=== PATIENT | female | born 1985 | race Caucasian/White ===

== ENCOUNTER 2017-12-14 15:23 | Outpatient (RCR) | payer OTHER, SELFPAY ==
--- NOTE | 2017-12-14 15:30 | PTTR_ITS ---
DATE: December 14, 2017 SUBJECTIVE: Nidia reports that overall she is noticing less knee pain. She has been trying to stay compliant with her HEP and has dug her old brace out and has been utilizing as needed between the right and left knee depending upon the day. She notes that she had guards over the weekend. She did a lot of running around and climbing this did increase her symptom level some. She notes that she gets some slight anterior knee pain with completion of the wall slides. She questions if she is completing them correctly. OBJECTIVE: Manual therapy: ([id number]).Patellofemoral joint mobilization all planes to bilateral knees. Soft tissue stretching to bilateral hamstring, ITB, piriformis , and quadriceps. Therapeutic procedures ([id number]). * X HEP review: Reviewed current program and added addition patellofemoral stabilization focusing open and closed chain tasks. Provided verbal and tactile cueing for proper body mechanics and avoidance of compensatory movement patterns. See additional handout in chart. Patient did not have a change of clothes at todays session due to just coming from work preferred the progression of HEP verses in clinic therex. Emphasized the importance of positioning during all exercise to avoid increased irritation primarily with functional squat in maintaining weight into heels and avoiding her knee from crossing her toes. Also recommended she not go to deep with the wall slide to reduce the stress anterior. This was much more comfortable for her. Declined need of modality post session. She will continue with HEP and contact dept if further appts are needed. If no formal contact is made over the next month will consider her discharged from our care at this time. Patient is also in agreement with this plan. Direct treatment time: 30 minutes Total treatment time: 30 minutes
== END 2017-12-23 23:59 | disposition home or self-care (01) ==
LOC: PT 15:23
PROVIDERS: PCP Nurse Practitioner; Referring Provider Nurse Practitioner Family; Visit Provider Nurse Practitioner Family
DX: M22.2X1 Patellofemoral disorders, right knee (principal); M22.2X2 Patellofemoral disorders, left knee
CPT/HCPCS: 97110; 97140

== ENCOUNTER 2018-02-20 11:29 | Emergency (ER) | payer OTHER, SELFPAY ==
[2018-02-20 11:47] VITALS: BP 124/65; PULSE 92; RESP 18; TEMP 36.6; O2SAT 100
--- NOTE | 2018-02-20 11:58 | W.ED.GENAD ---
Discharge Plan Disposition Patient Disposition: HOME Condition: Stable Discharge Details Chief Complaint: Orthopedic Clinical Impression: Axillary nerve palsy Primary Care Provider: Anne Marie Angelo ED Provider: Jazmín Doan Home Meds and New Rx's Prescriptions: Continue levonorgestrel-ethinyl estrad [Orsythia] 1 EACH tablet 1 tab-cap PO DAILY RF: 0 cyanocobalamin (vitamin B-12) [Vitamin B-12] 2,500 MCG tablet, sublingual 2,500 mcg PO DAILY RF: 0 pantoprazole 20 mg Tablet,Delayed Release (Dr/Ec) 20 mg PO DAILY RF: 0 Discharge Instructions Instructions: How to Use a Sling (GEN), Radial Nerve Palsy (ED) Additional Instructions: Please return immediately to the emergency department if you develop any new or worsening symptoms or if you become otherwise concerned. It is extremely important that you make an appointment to be seen by your primary care doctor within the next 1-2 weeks and follow-up for this visit. Today you were given discharge instructions for radial nerve palsy, however the actual nerve palsy that you have sustained is likely to the axillary nerve as we discussed. Referrals: Anne Marie Angelo [Primary Care Provider] - Discharge Data Discharge Date/Time-TO BE ENTERED AT DEPARTURE: 02/20/18 16:30 Medical Decision Making Nidia Bowman is a 33 y/o woman with h/o GERD who presented to the emergency departmnt with 2 days of left arm weakness, tingling after sleeping on the arm two nights ago. On exam Pt is well and non-toxic appearing. Cannot abduct left shoulder beyond 40-50 degrees. FROM left digits, wrist, elbow with normal strength. Sensory deficit over lateral upper arm. No other neuro deficit, no TTP of c/s, LUE. 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 Exam/hx not c/w CVA or other intracranial process, cervical spine etiology, infection, acute fracture. Plan for shoulder xrays for r/o possible contributory bony abnormality. Xray neg. Discussed Pt presentation with Dr. Coats of ortho, who agress with likely axillary neuropraxia, recommends sling usage for comfort, outpt f/u with PCP. Lengthy discussion with Pt re: RTED precautions and importance of outpt f/u with PCP. She is amenable to the plan. Medical Records Medical records reviewed: Yes I reviewed the patient's medical records. Imaging Data Radiologic Study: Attestation: I personally reviewed and interpreted this imaging study as follows: Radiologist's impression: LEFT SHOULDER: Five views. No priors. No bone or joint abnormality is identified. The soft tissues are unremarkable. IMPRESSION: Negative examination. HPI General Mode of arrival: ambulatory. Date/Time Provider Initiated Documentation: 02/20/18 11:58. Limitations to Documentation: no limitations. Information obtained by: patient and RN notes reviewed. HPI Narrative: Nidia Bwoman is a33 y/o woman with h/o GERD presenting to the emergency department with left arm weakness. Pt reports that two nights ago she fell asleep watching TV while lying on her left arm. When she woke up yesterday she felt tingling over the outer upper arm, superior shoulder area, and was unable to raise her arm to 90 degrees. No difficulty ranging fingers, wrist, elbow. Pt reports that her symptoms are unchanged today. Shes denies pain, other n/t/weakness, fever, SOB, cough, rash, n/v/d. Feels otherwise in her usual state of health. No recent illness. No trauma. Never with similar symptoms in the past. Related Data Home Medications Medication Instructions Recorded Confirmed levonorgestrel-ethinyl estrad 1 tab-cap PO DAILY tab-cap 07/20/16 02/20/18 [Orsythia] cyanocobalamin (vitamin B-12) 2,500 mcg PO DAILY 09/24/16 02/20/18 [Vitamin B-12] pantoprazole 20 mg PO DAILY 02/20/18 02/20/18 Allergies Allergy/AdvReac Type Severity Reaction Status Date / Time cefuroxime axetil Allergy Unknown red bumpy Unverified 02/20/18 14:05 [From Ceftin] nose vancomycin Allergy Unknown itchy Unverified 02/20/18 14:05 General Stated Complaint: Orthopedic DONNA: 4 Review of Systems Review of Systems Constitutional: denies fevers Eyes: denies eye pain ENT: denies facial pain, dental pain, sore throat Cardiovascular: denies chest pain, edema Respiratory: denies SOB, cough GI: denies abdominal pain, vomiting, diarrhea : denies flank pain MSK: denies back pain, neck pain, arthralgias, myalgias Skin: denies rash Neuro: denies headaches, reports LUE weakness, tingling PFSH Family History Mother No problems noted. Father No problems noted. Medical History Chronic pelvic pain in female Cyst of ovary Dysmenorrhea Endometriosis Hiatal hernia Irritable colon Recurrent dislocation of patellofemoral joint Tobacco dependence, continuous Social History Smoking/Tobacco Use Status: Current every day Surgical History Appendectomy (~2015) Arthroplasty of knee Colonoscopy - IV Sedation Diagnostic Laproscopy Endoscopy Incision, Tendon Sheath Exam Narrative Exam Narrative: Constitutional: well and [id number], pleasant, conversing normally HENT: head atraumatic, normocephalic normal inspection, mucous membranes moist Eyes: conjunctiva normal, sclera normal, pupils 3mm b/l Neck: no stridor, normal ROM, trachea midline, no paraspinal or cervical spine TTP Chest: normal inspection Resp: normal work of breathing, LCTAB Cardio: normal rate, normal rhythm, no murmur appreciated Back: normal inspection, no rash Skin: warm, dry, normal color, no rash Neuro: alert, not altered, normal tone. Normal flexion/extension of left digits, wrist, elbow. Inability to actively abduct left shoulder >40-50 degrees. Subjective sensory changes over left lateral upper arm. Radial pusles intact and and symmetric. Normal neuro exam of RUE. 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 Normal gait. LUE NTTP throughout. Painless ROM left shoulder, elbow, wrist. No overlying skin changes of LUE. Ext: no edema Psych: normal mood, normal affect, normal behavior Course Vital Signs Temperature 36.6 C 02/20/18 11:47 Pulse 92 H 02/20/18 11:47 Respiratory Rate 18 02/20/18 11:47 Blood Pressure 124/65 02/20/18 11:47 Pulse Oximetry 100 02/20/18 11:47 Temperature 36.6 C 02/20/18 11:47 Temperature Source Temporal Artery Scan 02/20/18 11:47 Pulse 92 H 02/20/18 11:47 Respiratory Rate 18 02/20/18 11:47 Blood Pressure 124/65 02/20/18 11:47 Blood Pressure Position Sitting 02/20/18 11:47 Pulse Oximetry 100 02/20/18 11:47 Oxygen Delivery Method Room Air 02/20/18 11:47 Oxygen Flow Rate 0 02/20/18 11:47 Pain Level 5 02/20/18 11:47
--- NOTE | 2018-02-20 12:28 | DI.RAD_ITS ---
SYMPTOMS/DIAGNOSIS: LT HUMERUS PAIN WITH NEUROPRAXIA LEFT SHOULDER: Five views. No priors. No bone or joint abnormality is identified. The soft tissues are unremarkable. IMPRESSION: Negative examination.
== END 2018-02-20 16:30 | disposition home or self-care (01) ==
PROVIDERS: Emergency Provider Student in an Organized Health Care Education/Training Program; PCP Nurse Practitioner
DX: G56.82 Other specified mononeuropathies of left upper limb (principal); R20.2 Paresthesia of skin
CPT/HCPCS: 99283; 73030; L1902

== ENCOUNTER 2018-03-27 16:40 | Outpatient (REF) | payer OTHER, SELFPAY ==
--- NOTE | 2018-03-27 15:20 | PAPFT_PTH ---
PATIENT: Nidia Bowman LOC: [facility] U#:[id number] AGE/SX: 33/F ROOM: RE03/27/[address]: Winifred Tom : 1985 BED: DIS: 03/27/2018 SPEC #: [id number] RECD: 03/27/18 17:58 STATUS: SHARON REUrban #: [id number] MARY KATE: 03/27/18 15:[address]: Winifred Tom DEPT: [facility] Cytology RECD BY: Kelsey Carrasco ENTERED: 03/27/18 17:58 SP TYPE: PAPFT OTHR DR: Anen Marie Angelo Tissues: 1 - CX/ENDOCX FOR PAP SMEARS Procedures: PAP THIN PREP/UVM Screening HPV DNA PROBE Comments: [id number]
[2018-03-29 13:15] LABS: Chlamydia Result Negative; GC Result Negative; Specimen Description CERVIX
== END 2018-03-27 17:00 ==
LOC: LBN 16:40
PROVIDERS: PCP Nurse Practitioner; Visit Provider Obstetrics & Gynecology Gynecology
DX: Z12.4 Encounter for screening for malignant neoplasm of cervix (principal); Z11.51 Encounter for screening for human papillomavirus (HPV); Z11.3 Encounter for screening for infections with a predominantly sexual mode of transmission; N89.8 Other specified noninflammatory disorders of vagina
CPT/HCPCS: 87491; 87591; 88142; 87480; 87510; 87624; 87660

== ENCOUNTER 2018-09-27 12:43 | Emergency (ER) | payer OTHER, SELFPAY ==
[2018-09-27 12:51] VITALS: BP 117/76; PULSE 109; RESP 16; TEMP 36.6; O2SAT 100
--- NOTE | 2018-09-27 12:57 | DI.US_ITS ---
SYMPTOMS/DIAGNOSIS: RIGHT LOWER PELVIC PAIN, ? OVARIAN CYST PELVIC ULTRASOUND: Transabdominal and transvaginal examination was performed. Comparison is 03/29/17. The uterus measures 7.8 cm long x 2.8 cm AP x 4 cm transverse. The endometrial stripe is within normal limits at 0.5 cm. No myometrial mass is present. The right ovary measures 3.0 x 1.8 x 1.8 cm. There are multiple simple cysts seen in the right ovary, the largest measures 1.7 x 0.9 x 1.6 cm. There is blood flow seen to both ovaries. No evidence of torsion is present. The left ovary measures 6.4 x 3.1 x 3.0 cm. There are multiple simple cysts present. The largest measures 2.8 x 1.8 x 2.6 cm. There is blood flow to the left ovary. No evidence of torsion is present. No free fluid is seen in the pelvis. No hydronephrosis is present. IMPRESSION: 1. Multicystic ovaries suspicious for polycystic ovarian disease. 2. No acute abnormality. The findings were discussed with the Emergency Department on the date of the examination.
--- NOTE | 2018-09-27 12:59 | W.ED.GENAD ---
Discharge Plan Disposition Patient Disposition: HOME Condition: Stable Discharge Details Chief Complaint: Abd Prob Clinical Impression: Cysts of both ovaries Primary Care Provider: Anne Marie Angelo ED Provider: Srinivas Singh Home Meds and New Rx's Prescriptions: New hydrocodone-acetaminophen [Vicodin] 5-300 mg tablet 1 tab PO Q6H PRN (Reason: pain) Qty: 12 RF: 0 Continued Lupron Depot (3 month) 11.25 mg syringe kit 11.25 mg IM [id number] Qty: 1 RF: 4 cyanocobalamin (vitamin B-12) [Vitamin B-12] 2,500 MCG tablet, sublingual 2,500 mcg PO DAILY RF: 0 pantoprazole 20 mg Tablet,Delayed Release (Dr/Ec) 20 mg PO DAILY RF: 0 ibuprofen 400 mg Tablet 400 mg RF: 0 norethindrone acetate 5 mg Tablet 5 mg PO DAILY AM RF: 0 Discharge Instructions Instructions: Ovarian Cyst (ED) Additional Instructions: follow up with women's wellness within a week if you have pain take 600mg ibuprofen every 6 hours as needed if you have severe worsening of pain or persistent vomit return to the emergency department Medical Decision Making 33 yo female with hx of ovarian cysts comes in with right sided pelvic pain that started this morning and feels similar to prior cysts. Has pain in the right lower pelvis on exam, no guarding or rebound, no pain over mcburnye's. Has had symptoms before with ct negative for appendicitis and she states this pain is similar to prior cysts she has had so doubt appendicitis. Will obtain u/s to eval for cyst vs torsion. she denies any vaginal bleeding or d/c pt feeling better, lab work unremarkable. U/s shows bilateral cysts, still no pain over mcburney's point so do not feel ct imaging indicated. Will have her f/u with women's wellness and return precautions given Differential Diagnosis cyst, torsion, uti Medical Records Medical records reviewed: Yes I reviewed the patient's medical records. Imaging Data Radiologic Study: Attestation: I personally reviewed and interpreted this imaging study as follows: Imaging: Ultrasound Radiologist's impression: bilateral ovarian cysts per Dr. Kaur Lab Data Lab results reviewed: Yes I reviewed the patient's lab results. HPI General Mode of arrival: ambulatory. Date/Time Provider Initiated Documentation: 09/27/18 12:43. Limitations to Documentation: no limitations. Information obtained by: patient. History of Present Illness 33 year old F presents to the emergency department with the chief complaint of pelvic pain, described as moderate, Quality is described as stabbing, and is localized to the pelvis. Patient reports no radiation. Patient started experiencing this hour(s) (5) and it has been constant. No relieving factors improve symptom(s), No exacerbating factors reported . Patient notes no other symptoms.. Patient did receive the following treatments prior to arrival, NSAID Related Data Home Medications Medication Instructions Recorded Confirmed cyanocobalamin (vitamin B-12) 2,500 mcg PO DAILY 09/24/16 09/27/18 [Vitamin B-12] pantoprazole 20 mg PO DAILY 02/20/18 09/27/18 leuprolide 11.25 mg (3 month) 11.25 mg IM [id number] #1 each 08/02/18 09/27/18 intramuscular syringe kit hydrocodone-acetaminophen [Vicodin] 1 tab PO Q6H PRN #12 tab 09/27/18 ibuprofen 400 mg 09/27/18 norethindrone acetate 5 mg PO DAILY AM 09/27/18 09/27/18 Previous Rx's Medication Instructions Recorded leuprolide 11.25 mg (3 month) 11.25 mg IM [id number] #1 each 08/02/18 intramuscular syringe kit hydrocodone-acetaminophen [Vicodin] 1 tab PO Q6H PRN #12 tab 09/27/18 Allergies Allergy/AdvReac Type Severity Reaction Status Date / Time cefuroxime axetil Allergy Unknown red bumpy Unverified 09/27/18 12:56 [From Ceftin] nose vancomycin Allergy Unknown itchy Unverified 09/27/18 12:56 General Stated Complaint: Abd Prob DONNA: 3 Review of Systems Review of Systems All systems reviewed & are unremarkable except as noted in HPI and below Constitutional Denies chills and Denies fever(s) Cardiovascular Denies chest pain and Denies dyspnea Respiratory Denies cough and Denies dyspnea Gastrointestinal Denies vomiting Genitourinary Denies dysuria Integumentary/Breasts Denies rash PFSH Surgical History Appendectomy (~2015) Arthroplasty of knee Colonoscopy - IV Sedation Diagnostic Laproscopy Endoscopy Incision, Tendon Sheath Family History Mother No problems noted. Father No problems noted. Social History Smoking/Tobacco Use Status: Current every day Tobacco Type: cigarettes Alcohol Intake: current Alcohol Intake frequency: a few times a week Drug use: Never Substance use type: does not use Number of Children: 0 Seatbelt use: always Do you feel safe in your relationship?: Yes History History 2 Para Hx # Term Pregnancies 0 Multiple births Hx # Pregnancies Ectopic pregnancies AB induced Hx Number of Living Children AB spontaneous Exam Const General: no acute distress Orientation: alert HENMT Head: normal to inspection Ears: external ears normal General nose exam: external nose normal Mouth: moist mucous membranes Eyes General: appearance normal, both eyes and all related structures Neck Neck: normal visual inspection Resp Effort & Inspection: normal respiratory effort and able to speak in complete sentences Cardio Rate: regular rate GI Palpation: soft Skin General skin exam: no rashes or lesions noted Neuro General: alert and oriented x3 Extrem General: normal to inspection Psych Mental Status: mental status grossly normal Course Vital Signs Temperature 36.6 C 09/27/18 12:51 Pulse 109 H 09/27/18 12:51 Respiratory Rate 16 09/27/18 12:51 Blood Pressure 117/76 09/27/18 12:51 Pulse Oximetry 100 09/27/18 12:51 Temperature 36.6 C 09/27/18 12:51 Temperature Source Temporal Artery Scan 09/27/18 12:51 Pulse 109 H 09/27/18 12:51 Respiratory Rate 16 09/27/18 12:51 Blood Pressure 117/76 09/27/18 12:51 Blood Pressure Position Sitting 09/27/18 12:51 Pulse Oximetry 100 09/27/18 12:51 Oxygen Delivery Method Room Air 09/27/18 12:51 Oxygen Flow Rate 0 09/27/18 12:51
--- NOTE | 2018-09-27 13:02 | ED.GENADUL_ITS ---
Discharge Plan Disposition Patient Disposition: HOME Condition: Stable Discharge Details Chief Complaint: Abd Prob Clinical Impression: Cysts of both ovaries Primary Care Provider: Anne Marie Angelo ED Provider: Srinivas Singh Home Meds and New Rx's Prescriptions: New hydrocodone-acetaminophen [Vicodin] 5-300 mg tablet 1 tab PO Q6H PRN (Reason: pain) Qty: 12 RF: 0 Continued Lupron Depot (3 month) 11.25 mg syringe kit 11.25 mg IM [id number] Qty: 1 RF: 4 cyanocobalamin (vitamin B-12) [Vitamin B-12] 2,500 MCG tablet, sublingual 2,500 mcg PO DAILY RF: 0 pantoprazole 20 mg Tablet,Delayed Release (Dr/Ec) 20 mg PO DAILY RF: 0 ibuprofen 400 mg Tablet 400 mg RF: 0 norethindrone acetate 5 mg Tablet 5 mg PO DAILY AM RF: 0 Discharge Instructions Instructions: Ovarian Cyst (ED) Additional Instructions: follow up with women's wellness within a week if you have pain take 600mg ibuprofen every 6 hours as needed if you have severe worsening of pain or persistent vomit return to the emergency department Medical Decision Making 33 yo female with hx of ovarian cysts comes in with right sided pelvic pain that started this morning and feels similar to prior cysts. Has pain in the right lower pelvis on exam, no guarding or rebound, no pain over mcburnye's. Has had symptoms before with ct negative for appendicitis and she states this pain is similar to prior cysts she has had so doubt appendicitis. Will obtain u/s to eval for cyst vs torsion. she denies any vaginal bleeding or d/c pt feeling better, lab work unremarkable. U/s shows bilateral cysts, still no pain over mcburney's point so do not feel ct imaging indicated. Will have her f/u with women's wellness and return precautions given Differential Diagnosis cyst, torsion, uti Medical Records Medical records reviewed: Yes I reviewed the patient's medical records. Imaging Data Radiologic Study: Attestation: I personally reviewed and interpreted this imaging study as follows: Imaging: Ultrasound Radiologist's impression: bilateral ovarian cysts per Dr. Kaur Lab Data Lab results reviewed: Yes I reviewed the patient's lab results. HPI General Mode of arrival: ambulatory . Date/Time Provider Initiated Documentation: 09/27/18 12:43 . Limitations to Documentation: no limitations . Information obtained by: patient . History of Present Illness 33 year old F presents to the emergency department with the chief complaint of pelvic pain, described as moderate, Quality is described as stabbing, and is localized to the pelvis. Patient reports no radiation. Patient started experiencing this hour(s) (5) and it has been constant. No relieving factors improve symptom(s), No exacerbating factors reported . Patient notes no other symptoms.. Patient did receive the following treatments prior to arrival, NSAID Related Data Home Medications Medication Instructions Recorded Confirmed cyanocobalamin (vitamin B-12) 2,500 mcg PO DAILY 09/24/16 09/27/18 [Vitamin B-12] pantoprazole 20 mg PO DAILY 02/20/18 09/27/18 leuprolide 11.25 mg (3 month) 11.25 mg IM [id number] #1 each 08/02/18 09/27/18 intramuscular syringe kit hydrocodone-acetaminophen [Vicodin] 1 tab PO Q6H PRN #12 tab 09/27/18 ibuprofen 400 mg 09/27/18 norethindrone acetate 5 mg PO DAILY AM 09/27/18 09/27/18 Previous Rx's Medication Instructions Recorded leuprolide 11.25 mg (3 month) 11.25 mg IM [id number] #1 each 08/02/18 intramuscular syringe kit hydrocodone-acetaminophen [Vicodin] 1 tab PO Q6H PRN #12 tab 09/27/18 Allergies Allergy/AdvReac Type Severity Reaction Status Date / Time cefuroxime axetil Allergy Unknown red bumpy Unverified 09/27/18 12:56 [From Ceftin] nose vancomycin Allergy Unknown itchy Unverified 09/27/18 12:56 General Stated Complaint: Abd Prob DONNA: 3 Review of Systems Review of Systems All systems reviewed & are unremarkable except as noted in HPI and below Constitutional Denies chills and Denies fever(s) Cardiovascular Denies chest pain and Denies dyspnea Respiratory Denies cough and Denies dyspnea Gastrointestinal Denies vomiting Genitourinary Denies dysuria Integumentary/Breasts Denies rash PFSH Surgical History Appendectomy (~2015) Arthroplasty of knee Colonoscopy - IV Sedation Diagnostic Laproscopy Endoscopy Incision, Tendon Sheath Family History Mother No problems noted. Father No problems noted. Social History Smoking/Tobacco Use Status: Current every day Tobacco Type: cigarettes Alcohol Intake: current Alcohol Intake frequency: a few times a week Drug use: Never Substance use type: does not use Number of Children: 0 Seatbelt use: always Do you feel safe in your relationship?: Yes History History 2 Para Hx # Term Pregnancies 0 Multiple births Hx # Pregnancies Ectopic pregnancies AB induced Hx Number of Living Children AB spontaneous Exam Const General: no acute distress Orientation: alert HENMT Head: normal to inspection Ears: external ears normal General nose exam: external nose normal Mouth: moist mucous membranes Eyes General: appearance normal, both eyes and all related structures Neck Neck: normal visual inspection Resp Effort & Inspection: normal respiratory effort and able to speak in complete sentences Cardio Rate: regular rate GI Palpation: soft Skin General skin exam: no rashes or lesions noted Neuro General: alert and oriented x3 Extrem General: normal to inspection Psych Mental Status: mental status grossly normal Course Vital Signs Temperature 36.6 C 09/27/18 12:51 Pulse 109 H 09/27/18 12:51 Respiratory Rate 16 09/27/18 12:51 Blood Pressure 117/76 09/27/18 12:51 Pulse Oximetry 100 09/27/18 12:51 Temperature 36.6 C 09/27/18 12:51 Temperature Source Temporal Artery Scan 09/27/18 12:51 Pulse 109 H 09/27/18 12:51 Respiratory Rate 16 09/27/18 12:51 Blood Pressure 117/76 09/27/18 12:51 Blood Pressure Position Sitting 09/27/18 12:51 Pulse Oximetry 100 09/27/18 12:51 Oxygen Delivery Method Room Air 09/27/18 12:51 Oxygen Flow Rate 0 09/27/18 12:51
[2018-09-27 13:19] LABS: Abs Immature Grans 0.02 k/cumm (0.0-0.09); Absolute Basophil Count 0.01 k/cumm (0.0-0.2); Absolute Eosinophil Count 0.07 k/cumm (0.0-0.7); Absolute Lymphocyte Count 2.09 k/cumm (1.2-3.4); Absolute Monocyte Count 0.68 k/cumm (0.11-0.7); Absolute Neutrophil Count 11.24 k/cumm (1.2-6.7); Basophils % 0.1; Eosinophils % 0.5; HCT 40.8 % (36.0-46.0); HGB 14.1 g/dL (12.0-15.5); Immature Grans % 0.1; Lymphocytes % 14.8; Mean Corp. HGB Concentration 34.6 g/dL (32.0-36.0); Mean Corpuscular Hemoglobin 32.6 pg (27.0-33.0); Mean Corpuscular Volume 94.4 fL (80-95); Monocytes % 4.8; Neutrophils % 79.7; Platelet Count 259 x1000/uL (130-400); RBC 4.32 m/cumm (4.00-5.20); RBC Distribution Width 11.9 % (11.7-14.6)
[2018-09-27 13:45] LABS: ALT 20 U/L (12-78); AST 13 U/L (15-37); Albumin 3.6 g/dL (3.4-5.0); Alkaline Phosphatase 78 U/L (46-116); Anion Gap 11.5 mmol/L (3-11); BUN 9 mg/dL (7-18); Bilirubin, Total 0.7 mg/dL (0.2-1.0); CO2 23.5 mmol/L (21.0-32.0); CREATININE 0.83 mg/dL (0.55-1.02); Calcium 9.3 mg/dL (8.5-10.1); Chloride 101 mmol/L (98-107); Glucose 112 mg/dL (70-100); Lipase 61 U/L (73-393); Potassium 3.8 mmol/L (3.5-5.1); Sodium 136 mmol/L (136-145); Total Protein 7.5 g/dL (6.4-8.2)
[2018-09-27] MEDS: Normal Saline 1,000 ML 1000 ML IV (14:08)
[2018-09-27] MEDS: Ketorolac 15 MG/ML VIAL IVP (14:08)
[2018-09-27 14:18] LABS: Bilirubin Negative (Negative); Blood Negative (Negative); Clarity Clear; Glucose Negative (Negative); Ketones Negative (Negative); Leukocyte Esterase Negative (Negative); Nitrite Negative (Negative); Specific Gravity 1.015 (1.005-1.025); Urobilinogen 0.2 EU/dL (Up TO 0.2); pH 7.5 (5-8)
== END 2018-09-27 15:15 | disposition home or self-care (01) ==
PROVIDERS: Emergency Provider Emergency Medicine; PCP Nurse Practitioner
DX: N83.201 Unspecified ovarian cyst, right side (principal); N83.202 Unspecified ovarian cyst, left side
CPT/HCPCS: 36415; 80053; 81025; 83690; 96361; 96374; 99284; 76830; 76856; 81003; 85025; J1885; J3490

== ENCOUNTER 2018-10-23 10:05 | Outpatient (CLI) | payer OTHER, SELFPAY ==
[2018-10-23 11:52] LABS: HCT 40.6 % (36.0-46.0); HGB 13.8 g/dL (12.0-15.5); Mean Corpuscular Volume 97.1 fL (80-95); Mean Platelet Volume 11.4 fL (8.0-11.0); Platelet Count 209 x1000/uL (130-400); RBC 4.18 m/cumm (4.00-5.20); White Blood Cell Count 10.71 k/cumm (4.4-10.8)
[2018-10-23 12:21] LABS: HCG Quant, Pregnancy < 1 mIU/mL (1-3)
== END 2018-10-23 10:25 ==
PROVIDERS: PCP Nurse Practitioner; Visit Provider Obstetrics & Gynecology Gynecology
DX: R10.2 Pelvic and perineal pain (principal); E28.2 Polycystic ovarian syndrome; Z01.812 Encounter for preprocedural laboratory examination; Z01.818 Encounter for other preprocedural examination
CPT/HCPCS: 36415; 85027; 86850; 86900; 86901; 84702

== ENCOUNTER 2018-11-01 07:11 | Day surgery (SDC) | payer OTHER, SELFPAY ==
[2018-11-01] VITALS (9 sets, daily range): BP systolic 107–146; BP diastolic 63–96; PULSE 79–108; RESP 7–16; TEMP 36.3–37.1; O2SAT 92–99
[2018-11-01] MEDS: Lactated Ringers 1,000 ML 30 ML IV ×2 (07:50→09:50)
[2018-11-01] MEDS: Bupivacaine 0.25% Pres-Free 30 ML VIAL (09:50)
--- NOTE | 2018-11-01 11:45 | OVAR_PTH ---
PATIENT: Nidia Bowman LOC: [facility] U#:[id number] AGE/SX: 33/F ROOM: RE11/01/[address]: Winifred Tom : 1985 BED: DIS: 11/01/2018 SPEC #: [id number] RECD: 11/01/18 12:55 STATUS: SHARON REQ #: [id number] MARY KATE: 11/01/18 11:[address]: Winifred Tom DEPT: Surgical Specimen RECD BY: Kelsey Carrasco ENTERED: 11/01/18 12:57 SP TYPE: LOLY SONG DR: Anne Marie Angelo Tissues: 1 - OVARY NOT TUMOR W OR W/O TUBES Procedures: GROSS AND MICRO LEVEL 4 Comments: [id number]
--- NOTE | 2018-11-01 13:13 | W.PM.DSUDISC ---
Discharge Plan Disposition Patient Disposition: HOME Condition: Stable Discharge Details Reason For Visit: laparoscopy Attending Provider: Winifred Tom Primary Care Provider: Anne Marie Angelo Home Meds and New Rx's Prescriptions: Continued cyanocobalamin (vitamin B-12) [Vitamin B-12] 2,500 MCG tablet, sublingual 2,500 mcg PO DAILY RF: 0 pantoprazole 20 mg Tablet,Delayed Release (Dr/Ec) 20 mg PO DAILY RF: 0 ibuprofen 400 mg Tablet 400 mg PO PRN PRNRF: 0 norethindrone acetate 5 mg Tablet 5 mg PO DAILY AM RF: 0 No Action hydrocodone-acetaminophen 5-325 mg tablet 1 tab PO Q6H MDD 4 PRN (Reason: pain) Qty: 30 RF: 0 Lupron Depot (3 month) 11.25 mg syringe kit 11.25 mg IM [id number] Qty: 1 RF: 4 estradiol 1 mg tablet 1 mg PO DAILY Qty: 90 RF: 5 Discharge Instructions Stand Alone Forms: [facility] Post Gynecology Surgery, Ora Grant ([facility]) Referrals: Winifred Tom MD [ [facility] STAFF PHYSICIAN] - Activity:: Activity as Tolerated Remove Dressings/Wound Care:: 24 hours Shower/Bathe:: 24 hours Diet:: As Tolerated Discharge Orders Discharge Orders: Discharge Order (Routine); Ordered 11/01/18 Ordered By: Jazmín Walker Discharge Data Discharge Date/Time-TO BE ENTERED AT DEPARTURE: 11/01/18 14:20 Discharge Comment: with parents & partner. DS: Diagnosis Discharge Diagnosis (1) Cysts of both ovaries: Status: Acute (2) Pelvic pain: Status: Acute
--- NOTE | 2018-11-11 11:04 | W.PM.OP ---
Date of service: 11/01/18 Time of Service: 11:04 Operative Note DATE OF PROCEDURE: 11/01/18 PRE-OP DIAGNOSIS: Chronic pelvic pain, recurrent ovarian cysts POST-OP DIAGNOSIS: same PROCEDURE: Laparoscopic lysis of adhesions bilateral salpingo-oophorectomy ANESTHESIA: GETA ESTIMATED BLOOD LOSS: 10 PATHOLOGY: other (Bilateral ovaries and fallopian tubes to pathology) COMPLICATIONS: None Patient was transported to: PACU Patient's condition: stable Indications: 33-year-old G2, P0 female with a history of stage IV endometriosis and recurrent polycystic ovaries despite medical management. She developed recurrent polycystic ovaries while receiving treatment releasing hormone agonist. Pelvic pain symptoms persisted despite several laparoscopic surgeries to remove endometriotic cysts. Endometriosis appears to recur even while on suppressive therapy.. Findings: Inflammatory changes throughout the posterior cul-de-sac with dense adhesions of the small intestine to the right adnexa. Cul-de-sac was obliterated by adhesions of the adnexa and posterior lower uterine segment. The ovaries did not appear to have cysts within however there were several 1 to 2 cm cysts within the pockets of adhesions. No active bleeding was noted from areas of previous endometriosis scarring. Procedure Description: Patient was taken to the operating room where she was placed in the dorsal supine position and general endotracheal anesthesia administered without difficulty. She was then placed in the dorsal lithotomy position in yellowfin stirrups prepped and draped in the usual sterile fashion. A surgical timeout was performed. SCDs were in place. A Huang was placed to gravity drainage and a Domenic uterine manipulator was inserted into the uterus and attached to a single-tooth tenaculum adherent to the anterior lip of the cervix. The umbilical fold was infiltrated with quarter percent Marcaine without epinephrine and a 10 mm incision was made in a vertical fashion using a scalpel. Transabdominal ultrasound was used to locate the appropriate tissue planes and under direct visualization a Veres needle was inserted into the abdominal cavity and intra-abdominal placement confirmed by use of the ultrasound and a drop in the intra-abdominal pressure. Pneumoperitoneum was established and a 10 mm Visiport was inserted into the abdomen without difficulty. Patient was placed in the Trendelenburg position and under direct visualization two 5 mm trochars were inserted in the right and left lower quadrants respectively after each site was infiltrated with quarter percent Marcaine and incised with a scalpel. Lysis of adhesions was performed using laparoscopic scissors and blunt dissection and the LigaSure device. This allowed access to the right adnexa where the right fallopian tube was identified followed out to its fimbriated end and dissected from the mesosalpinx to the level of the right uterine cornua. The ovary was adherent to the serosa of the small bowel and the right ureter was obscured. Incision was made along the right pelvic sidewall medial aspect and hydrodissection was used to identify the course of the right ureter and ascertain that it was away from the operative field. Using combination of gentle traction and laparoscopic scissors the right ovary was dissected away from the small intestine and sufficiently mobilized to allow the right infundibulopelvic ligament to be sequentially clamped cauterized and transected. Both the right and left ovary were placed in the posterior cul-de-sac. Attention was turned to the left adnexa where the adhesions did not involve the small intestine. Instead the left fallopian tube was densely adhesed to the left uterine serosa. Several cystic structures were noted within these adhesions. They were filled with clear fluid. Once again the peritoneum of the left pelvic sidewall was opened hydrodissecting did and the left ureter was located and felt to be safely away from the operative field. The left infundibulopelvic ligament was clamped cauterized and transected in several contiguous locations. This allowed access to the left broad ligament which was incised to the level of the left round ligament and from there the tubo-ovarian ligament was incised and the fallopian tube at the uterine cornua was clamped cauterized and transected. A Endo Catch bag was inserted through the umbilical port site and both the right ovary and fallopian tube in the left ovary and fallopian tube were placed in the bag and delivered through the abdominal wall. Once pneumoperitoneum was reestablished the pelvis was copiously irrigated with normal saline which was then aspirated. The pedicle sites were noted to be hemostatic. Direct visualization the 2 lower abdominal trochars were removed the sites were hemostatic the umbilical port was removed and that was also hemostatic. The rectus fascia of the umbilical port was reapproximated with 2 interrupted sutures of 0 Vicryl and the skin of all port sites was reapproximated with 4-0 Vicryl. The uterine manipulator was removed the tenaculum site was noted to be hemostatic bladder cystoscopy was performed and both ureteral jets were observed and noted to have vigorous efflux. The patient was placed in the dorsal supine position awakened from anesthesia extubated and transported to recovery area in stable condition. All sponge needle and lap counts were correct x2
== END 2018-11-01 14:20 | disposition home or self-care (01) ==
PROVIDERS: PCP Nurse Practitioner; Visit Provider Obstetrics & Gynecology Gynecology
PROC: (CPT 58661; principal; 2018-11-01 08:30)
PROC: (CPT 58661; 2018-11-01 08:30)
DX: R10.2 Pelvic and perineal pain (principal); N83.02 Follicular cyst of left ovary; N83.01 Follicular cyst of right ovary; N83.12 Corpus luteum cyst of left ovary; N83.11 Corpus luteum cyst of right ovary; N83.8 Other noninflammatory disorders of ovary, fallopian tube and broad ligament; N80.2 Endometriosis of fallopian tube; N80.5 Endometriosis of intestine; N80.3 Endometriosis of pelvic peritoneum; N80.0 Endometriosis of uterus
CPT/HCPCS: 58661; 52000; 36415; 81025; 86850; 86900; 86901; 88305; J1100; J1885; J2250; J2405; J3010

== ENCOUNTER 2019-01-26 16:25 | Outpatient (CLI) | payer OTHER, SELFPAY ==
[2019-01-29 09:57] LABS: Lyme Ab w Rflx to Lyme Confirm Negative
[2019-01-30 22:35] LABS: Anaplasma phagocytophilum Negative (Negative); B. miyamotoi PCR Negative (Negative); Babesia divergens/MO-1 Negative (Negative); Babesia duncani Negative (Negative); Babesia microti Negative (Negative); Ehrlichia chaffeensis Negative (Negative); Ehrlichia ewingii/canis Negative (Negative); Ehrlichia muris eauclairensis Negative (Negative)
== END 2019-01-26 16:45 ==
PROVIDERS: PCP Nurse Practitioner; Visit Provider Obstetrics & Gynecology Gynecology
DX: L98.9 Disorder of the skin and subcutaneous tissue, unspecified (principal)
CPT/HCPCS: 36415; 87798; 86618

== ENCOUNTER 2019-04-10 14:08 | Outpatient (CLI) | payer OTHER, SELFPAY ==
[2019-04-10 14:45] LABS: HGB 15.2 g/dL (12.0-15.5); Mean Corp. HGB Concentration 33.8 g/dL (32.0-36.0); Mean Corpuscular Hemoglobin 33.3 pg (27.0-33.0); Mean Corpuscular Volume 98.7 fL (80-95); Mean Platelet Volume 10.2 fL (8.0-11.0); Platelet Count 299 x1000/uL (130-400); RBC 4.56 m/cumm (4.00-5.20); RBC Distribution Width 12.1 % (11.7-14.6); White Blood Cell Count 11.08 k/cumm (4.4-10.8)
[2019-04-10 15:11] LABS: Anion Gap 12.9 mmol/L (3-11); BUN 8 mg/dL (7-18); CO2 26.1 mmol/L (21.0-32.0); CREATININE 0.76 mg/dL (0.55-1.02); Chloride 101 mmol/L (98-107); Glucose 93 mg/dL (74-106); Potassium 4.1 mmol/L (3.5-5.1); Sodium 140 mmol/L (136-145)
== END 2019-04-10 14:28 ==
PROVIDERS: PCP Nurse Practitioner Family; Visit Provider Obstetrics & Gynecology Gynecology
DX: N93.9 Abnormal uterine and vaginal bleeding, unspecified (principal); R10.2 Pelvic and perineal pain; N94.6 Dysmenorrhea, unspecified; Z01.818 Encounter for other preprocedural examination; Z01.812 Encounter for preprocedural laboratory examination
CPT/HCPCS: 36415; 80048; 85027; 86850; 86900; 86901

== ENCOUNTER 2019-04-11 11:33 | Observation (INO) | payer OTHER, SELFPAY ==
[2019-04-11] VITALS (19 sets, daily range): BP systolic 81–101; BP diastolic 35–66; PULSE 61–96; RESP 10–18; TEMP 36.1–37; O2SAT 96–99
[2019-04-11] MEDS: Lactated Ringers 1,000 ML 125 ML IV ×3 (07:15→21:33)
[2019-04-11] MEDS: ceFAZolin 2 GM/50 ML BAG IVPB (08:52)
[2019-04-11] MEDS: Lactated Ringers 1,000 ML 30 ML IV (09:20)
[2019-04-11] MEDS: Bupivacaine 0.25% Pres-Free 30 ML VIAL (09:35)
--- NOTE | 2019-04-11 10:38 | UTER_PTH ---
PATIENT: Nidia Bowman LOC: U#:[id number] AGE/SX: 34/F ROOM: 231 RE04/11/[address]: Winifred Tom : 1985 BED: A DIS: 04/12/2019 SPEC #: [id number] RECD: 04/11/19 12:48 STATUS: SHARON REQ #: [id number] MARY KATE: 04/11/19 10:[address]: Winifred Tom DEPT: Surgical Specimen RECD BY: Kelsey Carrasco ENTERED: 04/11/19 12:48 SP TYPE: UTER OTHR DR: Terese Hernandez Tissues: 1 - UTERUS W OR W/O OVARIES(NOT TUMOR/PROLAPSE) Procedures: GROSS AND MICRO LEVEL 5 Comments: [id number]
[2019-04-11] MEDS: diphenhydrAMINE 50 MG/ML VIAL 12.5 MG IVP (15:08)
--- NOTE | 2019-04-11 15:10 | ROE_ITS ---
Date of service: 04/11/19 Time of Service: 15:10 Operative Note Operative Note DATE OF PROCEDURE: 04/11/19 PRE-OP DIAGNOSIS: Abnormal uterine bleeding, dysmenorrhea POST-OP DIAGNOSIS: same PROCEDURE: Laparoscopic assisted transvaginal hysterectomy SURGEON: Winifred Tom CONTRACT DRIVER: Michael Scott ANESTHESIA: GETA and spinal ESTIMATED BLOOD LOSS: 20 PATHOLOGY: other (Uterus and cervix to pathology) COMPLICATIONS: None Patient was transported to: PACU Patient's condition: stable Indications: 34-year-old G2, P0 female with a longstanding history of polycystic ovaries endometriosis and associated pelvic pain. Patient underwent a laparoscopic bilateral salpingo-oophorectomy in October 2018 for polycystic ovaries unresponsive to medical management. After the surgery she had uterine bleeding not responsive to HRT or progesterone only therapy. Along with her abnormal uterine bleeding she had associated dysmenorrhea. Decision was made to proceed with definitive therapy in the form of hysterectomy Findings: Uterus small with dense adhesions of the posterior cul-de-sac to the uterine serosa obliterating the cul-de-sac. After the cul-de-sac adhesions were lysed there is approximately 15 cc of old blood in the posterior cul-de-sac with powder burn endometriosis noted in proximity to the uterosacral ligaments and blue spots of endometriosis along the posterior cul-de-sac. The bladder flap and anterior surface of the lower uterine segment was normal in appearance. Procedure Description: Patient was taken the operating room was placed in the supine position and spinal anesthesia was administered without difficulty she was then placed in the dorsal supine position and general endotracheal anesthesia was administered. Patient was then placed [facility] with SCDs in place. She received 2 g of Ancef upon arrival in the operating room. Surgical timeout was performed. Patient was prepped and draped in the usual sterile fashion a Huang catheter was inserted to gravity drainage a bivalve speculum was placed into the vagina the anterior lip of the cervix was grasped with a single-tooth tenaculum and a Domenic uterine manipulator was inserted into the uterine cavity and left in place attached to the single-tooth tenaculum. [place] speculum was removed and attention was turned to the patient's abdomen. Caudal portion of the umbilicus was infiltrated with quarter percent Marcaine without epinephrine and an elliptical excision was performed of previous umbilical scar. Through this incision a Veirs needle was introduced attached to carbon dioxide flow and under direct visualization with the abdominal ultrasound the needle was introduced through the fascial layers and into the abdominal cavity without difficulty. A drop in the intra-abdominal pressure was noted with placement in the abdominal cavity. Once pneumoperitoneum was achieved the varies needle was removed and a 10 mm Visiport was placed through the umbilical incision and intra-abdominal placement confirmed by use of the laparoscope. Patient was then placed in Trendelenburg and along the previous right and left lower quadrant trocar incisions the area was infiltration with quarter percent Marcaine incision with a scalpel and under direct visualization placement of a 5 mm trocar and sleeve. Upper abdomen was inspected with the laparoscope and and appeared normal. The attention was then turned to the cul-de-sac where combination of blunt technique and LigaSure electrocautery the adhesions of the posterior cul-de-sac to the serosal surface of the posterior uterus were reduced. Once there was sufficient mobilization of the adhesions the collection of dark brown serous fluid and previous endometriosis was observed. The right round ligament was clamped cauterized and transected allowing access to the right broad ligament which was sequentially clamped cauterized and transected both anterior and posterior leaves to the level of the lower uterine segment. The bladder flap was then created using gentle traction on the vesicouterine peritoneum and incision of the serosal surface of the lower uterine segment with the LigaSure device. The right uterine artery and vein were then skeletonized clamped cauterized and transected. Attention was turned to the patient's left round ligament which in a similar fashion was clamped cauterized and transected and the broad ligament also opened using the LigaSure device to the level of the uterine artery on the left lower uterine segment. Once the left uterine artery and vein had been identified clamped, cauterized, and transected there was felt to be sufficient mobilization of the uterus to proceed with a vaginal portion of the procedure. The pelvis was copiously irrigated with normal saline all pedicle sites were noted to be hemostatic. Pneumoperitoneum was reduced and a weighted vaginal speculum was placed into the vagina the anterior lip of the cervix was grasped with a single-tooth tenaculum and the body of the cervix was infiltrated with 1% lidocaine with epinephrine in a circumferential fashion. Bovie electrocautery was then used to incise the epithelium of the cervix. A moistened gauze was then used to bluntly dissect the bladder off of the pubovesical cervical fascia. Metzenbaum scissors were then used to incise the peritoneum and the anterior cul-de-sac was entered sharply. Same procedure was performed posteriorly and posterior cul-de-sac was entered without difficulty and a long billed weighted speculum was inserted and left in place. A curved Zeppelin clamp was placed over the left uterosacral ligament which was then cut suture-ligated with 0 Vicryl and the suture held long similar technique was carried out on the contralateral uterosacral ligament. The remaining right broad ligament was sequentially clamped transected with a curved Snow scissors and suture ligated with 0 Vicryl. Once again similar technique was used on the contralateral remaining broad ligament and the uterus was delivered and passed off of the operative field. The pedicles of the uterosacral ligament complexes were hemostatic. The vaginal cuff was reapproximated in a vertical fashion with interrupted sutures of 0 Vicryl with care taken to incorporate the vaginal cuff and the utero sacral ligament complex bilaterally. Upon closure of the vaginal cuff it was inspected and noted to be hemostatic. Attention was once again turned to the patient's abdomen after a sterile glove change pneumoperitoneum was once again established with carbon dioxide and laparoscope was used to inspect the vaginal cuff and posterior cul-de-sac. All pedicle sites were noted to be hemostatic. With excellent cuff closure. Pelvis was copiously irrigated with normal saline and under direct visualization both 5 mm lower trochars were removed. The 10 mm umbilical trocar was removed after the pneumoperitoneum was reduced and 2 [place] clamps were used to grasp the rectus fascia which was then closed with 6 a interrupted [id number] suture of 0 Vicryl. The subcutaneous tissue was reapproximated with interrupted suture of 0 Vicryl and the skin of all trocar sites was reapproximated with 3-0 Monocryl in subcuticular fashion. The skin was sealed with skin glue. The patient was then placed in the dorsal supine position, awakened extubated and transported recovery area in stable condition all sponge lap needle counts correct x2
[2019-04-11] MEDS: Ketorolac 30 MG/ML VIAL IVP ×2 (16:27→22:46)
[2019-04-11] MEDS: Normal Saline Flush 10 ML SYR IV ×2 (16:29→22:46)
[2019-04-11] MEDS: NALBUPHINE 5 MG in Normal Saline 50 ML 100 MG IVPB (16:37)
[2019-04-11] MEDS: Docusate Sodium 100 MG CAP PO (19:30)
[2019-04-11] MEDS: HYDROmorphone 2 MG TAB PO (19:43)
--- NOTE | 2019-04-11 19:44 | W.PM.PROGNOT ---
Date of Service Date of service: 04/11/19 Time of Service: 19:45 Assessment and Plan Assessment and plan (1) History of laparoscopic-assisted vaginal hysterectomy: Status: Acute Assessment and plan: Patient recovering well. The plan is to discharge her to home on 04/12/2019. Subjective Subjective Patient reports: pain is less and tolerating a regular diet Interval history since last seen: Able to get out of bed with assistance. Patient reports that the pruritus that she was experiencing earlier has subsided. I reviewed the surgery findings with the patient and answered her questions. Exam Const General: no acute distress Nutritional Appearance: average body habitus Orientation: alert, awake and oriented x3 General: deferred (Small amount of serosanguineous discharge on charmaine-pad.) External Female Exam: other (Huang catheter bulb deflated and Huang catheter removed for 600 cc urine ) Skin General skin exam: no rashes or lesions noted Extrem General: normal to inspection, full ROM and normal capillary refill (SCDs off.) Objective Objective Clinical Data: Vital Signs Temperature 97.0 F L 04/11/19 14:48 Temperature Source Temporal Artery Scan 04/11/19 14:48 Pulse 70 04/11/19 14:48 Pulse Rhythm Regular 04/11/19 16:55 Respiratory Rate 18 04/11/19 14:48 Respiratory Effort 04/11/19 16:55 Respiratory Depth Normal 04/11/19 16:55 Respiratory Pattern Normal 04/11/19 16:55 Blood Pressure 89/52 L 04/11/19 14:48 Pulse Oximetry 98 04/11/19 16:14 Respiratory End-tidal CO2 41 04/11/19 12:30 Oxygen Delivery Method Room Air 04/11/19 16:14 Oxygen Flow Rate 0 04/11/19 16:14 Pain Level 6 04/11/19 19:43 Intake & Output 04/10/19 04/11/19 04/11/19 23:59 11:59 23:59 Intake Total 1450 / 2450 1000 / 2450 Output Total 620 / 620 Balance 830 / 1830 1000 / 1830 Weight 147 lb 14.883 oz Intake: IV 1450 / 1900 450 / 1900 Oral 550 / 550 Output: Urine 600 / 600 Estimated Blood Loss 20 / 20 Other: Urine Color Yellow Urine Appearance Clear Clear Emesis Description None None
[2019-04-12] VITALS (8 sets, daily range): BP systolic 100; BP diastolic 63; PULSE 68; RESP 15–18; TEMP 36.7; O2SAT 95–100
[2019-04-12] MEDS: Ketorolac 30 MG/ML VIAL IVP (04:50)
[2019-04-12] MEDS: Lactated Ringers 1,000 ML 125 ML IV (05:25)
[2019-04-12 07:00] LABS: HCT 34.6 % (36.0-46.0); HGB 11.4 g/dL (12.0-15.5); Mean Corp. HGB Concentration 32.9 g/dL (32.0-36.0); Mean Corpuscular Hemoglobin 33.2 pg (27.0-33.0); Mean Corpuscular Volume 100.9 fL (80-95); Mean Platelet Volume 10.3 fL (8.0-11.0); Platelet Count 201 x1000/uL (130-400); RBC 3.43 m/cumm (4.00-5.20); RBC Distribution Width 11.9 % (11.7-14.6); White Blood Cell Count 9.44 k/cumm (4.4-10.8)
[2019-04-12 07:36] LABS: ALT 14 U/L (14-59); AST < 5 U/L (15-37); Albumin 2.8 g/dL (3.4-5.0); Alkaline Phosphatase 48 U/L (46-116); BUN 9 mg/dL (7-18); Bilirubin, Total 0.8 mg/dL (0.2-1.0); CREATININE 0.84 mg/dL (0.55-1.02); Calcium 8.2 mg/dL (8.5-10.1); Chloride 101 mmol/L (98-107); Glucose 86 mg/dL (74-106); Potassium 4.2 mmol/L (3.5-5.1); Sodium 135 mmol/L (136-145); Total Protein 5.6 g/dL (6.4-8.2)
[2019-04-12] MEDS: Acetaminophen 500 MG TAB PO (07:50)
[2019-04-12] MEDS: Docusate Sodium 100 MG CAP PO (07:50)
[2019-04-12] MEDS: HYDROmorphone 2 MG TAB PO (07:50)
--- NOTE | 2019-04-12 08:18 | W.PM.DS.N ---
Date of service: 04/12/19 Time of Service: 08:19 DS: Diagnosis Discharge Diagnosis (1) History of laparoscopic-assisted vaginal hysterectomy: Status: Acute Discharge Plan Disposition Patient Disposition: HOME Condition: Good Discharge Details Reason For Visit: LAPAROSCOPIC ASSISTED VAGINAL HYSTERECTOMY Admit Date/Time: 04/11/19 11:33 Admit Provider: Winifred Tom Attending Provider: Winifred Tom Primary Care Provider: Terese Hernandez Hospital Course Hospital Course: Patient was admitted the morning of surgery underwent the above-stated procedure. Estimated blood loss 20 cc. Postop course was uncomplicated she was discharged home on postop day #1 tolerating a regular diet passing flatus. Pain was controlled with nonsteroidal anti-inflammatories and Dilaudid approximately 6 hours. Incisions clean dry and intact. The plan at this time is to not provide estrogen replacement. Significant endometriosis was noted in the pelvis at the time of surgery. She has experienced vasomotor symptoms in the past and is willing to forego any ERT. She be discharged home with follow-up in approximately 2 weeks to discuss pathology reports. She is aware of the plan to have her out of work between 4 and 6 weeks. Home Meds and New Rx's Prescriptions: No Action hydromorphone [Dilaudid] 2 mg tablet 2 mg PO Q6H MDD 4 PRN (Reason: pain) Qty: 20 RF: 0 calcium carbonate-vitamin D3 600-125 mg-unit tablet 1 tab PO DAILY RF: 0 Prempro 0.3-1.5 mg tablet 1 tab PO DAILY Qty: 60 RF: 6 Hold Instructions: Home Medication placed on hold at Doctor's office norethindrone acetate 5 mg tablet 5 mg PO DAILY Qty: 60 RF: 5 Hold Instructions: Home Medication placed on hold at Doctor's office estradiol [Estrace] 1 mg tablet 1 mg PO DAILY Qty: 60 RF: 1 medroxyprogesterone 5 mg tablet 5 mg PO DAILY Qty: 60 RF: 1 hydrocodone-acetaminophen 5-325 mg tablet 1 tab PO Q6H MDD 4 PRN (Reason: pain) Qty: 20 RF: 0 cyanocobalamin (vitamin B-12) [Vitamin B-12] 2,500 MCG tablet, sublingual 2,500 mcg PO DAILY RF: 0 pantoprazole 20 mg Tablet,Delayed Release (Dr/Ec) 20 mg PO DAILY RF: 0 ibuprofen 400 mg Tablet 400 mg PO PRN PRNRF: 0 Discharge Instructions Additional Instructions: Dilaudid 2 mg 1 tablet every 6 hours as needed for pain. Take Tylenol and ibuprofen along with the Dilaudid. Stand Alone Forms: DSU Post Gynecology Surgery Activity:: Activity as Tolerated Equipment/Supplies:: No Equipment Needed Diet:: As Tolerated Discharge Orders Discharge Orders: Discharge Order (Routine); Ordered 04/12/19 Ordered By: Winifred Tom DS: Summary Status at Discharge Functional status at discharge: independent ambulation Overall status at discharge: patient is progressing back to baseline Mental Status: mental status grossly normal Speech and Movement: speech and movement normal Mood: congruent mood Affect: normal affect Exam Const General: no acute distress Nutritional Appearance: average body habitus Orientation: alert, awake and oriented x3 Resp Effort & Inspection: normal respiratory effort Auscultation: clear to auscultation bilaterally Cardio Rate: regular rate Rhythm: regular rhythm GI Inspection: normal to inspection and scar (Well approximated without ecchymosis. Skin glue intact.) Palpation: soft, no guarding, no masses and tender (Sligh generalized tender) General: deferred Speculum Exam - Vagina: normal vaginal discharge (Small amount of serosanguineous drainage on charmaine-pad. No heavy bleeding) Back/Spine/Pelvis Back: no CVA tenderness Extrem General: normal to inspection, full ROM and normal capillary refill Psych Mental Status: mental status grossly normal Speech and Movement: speech and movement normal Mood: congruent mood Affect: normal affect DS: Data Vitals/I&O Vitals and I&O: Vital Signs Temperature 98.1 F 04/12/19 03:55 Temperature Source Tympanic 04/12/19 03:55 Pulse 68 04/12/19 03:55 Pulse Rhythm Regular 04/12/19 07:59 Respiratory Rate 16 04/12/19 06:30 Respiratory Effort Non-Labored 04/12/19 07:59 Respiratory Depth Normal 04/12/19 07:59 Respiratory Pattern Normal 04/12/19 07:59 Blood Pressure 100/63 04/12/19 03:55 Pulse Oximetry 98 04/12/19 06:30 Respiratory End-tidal CO2 41 04/11/19 12:30 Oxygen Delivery Method Room Air 04/12/19 05:30 Oxygen Flow Rate 0 04/12/19 05:30 Pain Level 6 04/12/19 07:50 Intake & Output 04/11/19 04/11/19 04/12/19 11:59 23:59 11:59 Intake Total 1450 / 3920 2470 / 3920 1433.333 / 1433.333 Output Total 620 / 920 300 / 920 1100 / 1100 Balance 830 / 3000 2170 / 3000 333.333 / 333.333 Weight 147 lb 14.883 oz Intake: IV 1450 / 2920 1470 / 2920 983.333 / 983.333 Oral 1000 / 1000 450 / 450 Output: Urine 600 / 900 300 / 900 1100 / 1100 Estimated Blood Loss Other: Urine Color Yellow Yellow Straw Urine Appearance Clear Clear Clear Hematuria Urine Odor None None Comment tiny amount of blood in urine. Emesis Description None None Voiding Methods Toilet Toilet Data Completed and Pending Labs on day of discharge: Labs from last 24 hours 04/12/19 04/12/19 06:30 06:30 WBC 9.44 RBC 3.43 L Hgb 11.4 L D Hct 34.6 L D MCV 100.9 H MCH 33.2 H MCHC 32.9 RDW 11.9 Plt Count 201 MPV 10.3 Sodium 135 L Potassium 4.2 Chloride 101 Carbon Dioxide 28.0 Anion Gap 6.0 BUN 9 Creatinine 0.84 Estimated GFR/1.73 m2 >= 60.00 Glucose 86 Calcium 8.2 L Total Bilirubin 0.8 AST < 5 L ALT 14 Alkaline Phosphatase 48 Total Protein 5.6 L Albumin 2.8 L [facility] Medical History Abnormal uterine bleeding (AUB) (Acute) 11/2018. After laparoscopic bilateral salpingo-oophorectomy to treat recurrent endometriosis and pelvic pain. Rx with HRT. 01/2019 Rx with daily norethindrone Chronic pelvic pain in female Secondary to recurrent endometriosis and polycystic ovaries. Cyst of ovary 03/2013 persistent R ovarian cysts. s/p R ovarian cystectomy 08/23/13. endometriomas. 01/2015 Polycystic ovaries. Not endometriomas. 04/2014 pt referred to [facility] [place] [facility] dept. Cysts of both ovaries (Resolved 05/15/15) polycystic. Not improved with continuous OCPs since 01/2015. 06/2018 Referred to [facility] at [facility]. Will begin DepoLupron again. 09/27/2018 current PCOS symptoms despite treatment with Depo-Lupron Dysmenorrhea Endometriosis longstanding hx of pelvic pain. DX in 2012. Stage 4 with endometriomas in 08/2013. Hiatal hernia Irritable colon Pelvic pain (Inactive 05/15/15) Multiple ovarian cystectomies treated with Depo-Lupron. Polycystic ovaries symptoms persist. Patient wishes bilateral oophorectomy Recurrent dislocation of patellofemoral joint Tobacco dependence, continuous Surgical History (Updated 04/11/19 @ 19:48 by Winifred Tom MD) Appendectomy (~2015) performed at time of operative laparoscopy at [facility] [place] [facility] for polycystic ovaries Arthroplasty of knee Pt denies knee replacement Colonoscopy - IV Sedation 2002 and 2012 Diagnostic Laproscopy 2004 - for pelvic pain. finding of Elayne's duct cyst. No mention of endometriosis. 2013 in [place] - for pelvic pain. had endometrioma 08/23/13 persistent R ovarian cyst. 2 endometriomas with ovarian cystectomy. [facility] 01/03/14 laparoscopic R ovarian cystectomy - endometrioma. [facility]. 2016 Operative laparoscopy [facility] [place] [facility]. Polycystic ovaries, not all cysts removed. 07/06/16 Ovarian cystectomy [facility]. Endoscopy 2002 and 2012 H/O bilateral oophorectomy (Acute) 11/01/18 with bilateral salpingectomy. No endometriosis in ovarian tissue. Inflammatory changes only. History of arthroscopic knee surgery (Chronic) Bilateral arthroscopy, torn meniscus L, R patellar subluxation History of laparoscopic-assisted vaginal hysterectomy (Acute) Incision, Tendon Sheath R wrist. 04/2014 Dr Coats. Family History Mother No problems noted. Father No problems noted. Social History (Updated 03/27/18 @ 15:05 by Michelle Bettencourt LPN) Smoking/Tobacco Use Status: Current every day Tobacco Type: cigarettes Smoking packs per day: 0.5 Smoking cigarettes per day: 10.0 Years smoked: 24 Smoking pack-years: 12.00 Alcohol Intake: current Alcohol Intake frequency: a few times a week Drug use: Never Substance use type: does not use Number of Children: 0 Seatbelt use: always Do you feel safe at home: Yes Do you feel safe in your relationship?: Yes History History 2 Para Hx # Term Pregnancies 0 Multiple births Hx # Pregnancies Ectopic pregnancies AB induced Hx Number of Living Children AB spontaneous
== END 2019-04-12 09:39 | disposition home or self-care (01) ==
LOC: MS 13:54
PROVIDERS: Admitting Provider Obstetrics & Gynecology Gynecology; PCP Nurse Practitioner Family; Visit Provider Obstetrics & Gynecology Gynecology
PROC: 0UT9FZZ Resection of Uterus, Via Natural or Artificial Opening With Percutaneous Endoscopic Assistance (ICD-10-PCS; CPT 58550; principal; 2019-04-11 08:00)
DX: N93.9 Abnormal uterine and vaginal bleeding, unspecified (principal); R10.2 Pelvic and perineal pain; G89.29 Other chronic pain; N94.6 Dysmenorrhea, unspecified; D25.9 Leiomyoma of uterus, unspecified; N72 Inflammatory disease of cervix uteri; F17.210 Nicotine dependence, cigarettes, uncomplicated; Z90.722 Acquired absence of ovaries, bilateral; Z90.79 Acquired absence of other genital organ(s)
CPT/HCPCS: 58550; 36415; 80053; 85027; NC; 88307; G0378; J0690; J1200; J1885; J2250; J2405; J3010; J3490

== ENCOUNTER 2019-05-31 10:04 | Outpatient (CLI) | payer OTHER, SELFPAY ==
--- NOTE | 2019-05-31 10:54 | DI.US_ITS ---
EXAM: US RENAL PELVIC TRANSVAGINAL CLINICAL HISTORY: Continued pelvic pain after hysterectomy and BSO, R10.2 G89.29 Z90.710 TECHNIQUE: Ultrasound performed using standard protocol. COMPARISON: ABD PELVIS WITH CONTRAST from 03/19/2017 US PELVIS TRANSVAGINAL from 09/27/2018 FINDINGS: Pelvic ultrasound was performed transabdominally and transvaginally. The kidneys are normal in size and shape. No evidence of hydronephrosis or nephrolithiasis. Urinary bladder is unremarkable in gil earance. No free fluid identified in the pelvis. The requisition indicated that the patient has had a prior hy sterectomy and bilateral salpingo oophorectomy. However a consultation with Dr. Scott indicates that there has been a hysterectomy but no oophorectomy. The ovaries are not identified with certainty. Th ere are a couple of small simple cysts in the right adnexal region consistent with small ovarian cyst s, measuring about 11 millimeters and 19 millimeters in diameter respectively. No free fluid identifi ed in the pelvis. IMPRESSION: Small right adnexal simple cysts, presumably associated with right ovary. No other significant findin g.
== END 2019-05-31 10:24 ==
PROVIDERS: PCP Nurse Practitioner Family; Visit Provider Obstetrics & Gynecology Gynecology
DX: R10.2 Pelvic and perineal pain (principal); N83.8 Other noninflammatory disorders of ovary, fallopian tube and broad ligament; Z90.710 Acquired absence of both cervix and uterus; N83.291 Other ovarian cyst, right side
CPT/HCPCS: 76770; 76830; 76856

== ENCOUNTER 2019-06-26 02:06 | Outpatient (CLI) | payer OTHER, SELFPAY ==
[2019-06-26] MEDS: Breeza Beverage 473 ML BTL PO ×2 (07:27→07:29)
[2019-06-26] MEDS: Omnipaque 350 MG/ML 50 ML BTL IJ (07:27)
[2019-06-26] MEDS: Normal Saline - Diluent 50 ML VIAL IV (08:25)
[2019-06-26] MEDS: Omnipaque 350 MG/ML 100 ML BTL IJ (08:46)
--- NOTE | 2019-06-26 08:51 | DI.CT_ITS ---
EXAM: CT ABDOMEN PELVIS W CLINICAL HISTORY: persistent pelvic pain after BSO,ADNEXAL CYST, N94..9 TECHNIQUE: Post IV and oral contrast. COMPARISON: ABD PELVIS WITH CONTRAST from 03/19/2017 PELVIS TRANSVAG from 03/29/2017 US RENAL PELVIC TRANSVAGINAL from 05/31/2019 FINDINGS: There are cystic areas in the right lower pelvis measuring 2.5 and 2 cm in diameter. The findings c ould represent residual adnexal cysts versus small postsurgical seromas. No definite ovarian tissue is demonstrated in either adnexal region. The patient is status post hysterectomy. The urinary blad jasper appears normal. The heart size is normal. The lung bases are clear. The liver, gallbladder, spleen, pancreas, kidne ys and adrenals are unremarkable. There is no bowel dilatation or inflammatory change. The appendix appears normal. There is a moderate quantity of stool throughout the colon. The aorta is normal in diameter. There are no suspicious bony abnormalities. IMPRESSION: Status post hysterectomy. Two cystic areas are again noted in the right lower pelvis which could rep resent residual post surgical seromas versus residual adnexal cysts. No suspicious features are seen .
== END 2019-06-26 02:26 ==
PROVIDERS: PCP Nurse Practitioner Family; Visit Provider Obstetrics & Gynecology Gynecology
DX: R10.2 Pelvic and perineal pain (principal); N94.89 Other specified conditions associated with female genital organs and menstrual cycle; Z90.722 Acquired absence of ovaries, bilateral; Z90.710 Acquired absence of both cervix and uterus
CPT/HCPCS: 74177; J3490; Q9967

== ENCOUNTER 2019-10-19 13:52 | Outpatient (REF) | payer OTHER, SELFPAY ==
[2019-10-20 11:22] LABS: Campylobacter PCR Negative (Negative); Salmonella PCR Negative (Negative); Shiga Toxin PCR Negative (Negative); Shigella/Enteroinvasive Ecoli Negative (Negative)
== END 2019-10-19 14:12 ==
LOC: LBN 13:52
PROVIDERS: PCP Nurse Practitioner Family; Visit Provider Obstetrics & Gynecology Gynecology
DX: R19.7 Diarrhea, unspecified (principal); R19.4 Change in bowel habit
CPT/HCPCS: 87505; 87324

== ENCOUNTER 2019-10-19 14:20 | Outpatient (REF) | payer OTHER, SELFPAY ==
[2019-10-22 20:01] LABS: SARS-CoV-2 RNA Undetected (Undetected); SARS-CoV-2 Specimen Source Nasopharynx
== END 2019-10-19 14:40 ==
LOC: NCHCN 14:20
PROVIDERS: PCP Nurse Practitioner Family; Visit Provider Nurse Practitioner Family
DX: Z20.828 Contact with and (suspected) exposure to other viral communicable diseases (principal)
CPT/HCPCS: U0003

== ENCOUNTER 2019-12-20 10:16 | Outpatient (REF) | payer OTHER, SELFPAY ==
[2019-12-20 18:41] LABS: Abs Immature Grans 0.01 10^3/uL (0.0-0.06); Absolute Basophil Count 0.05 10^3/uL (0.0-0.2); Absolute Eosinophil Count 0.07 10^3/uL (0.0-0.7); Absolute Lymphocyte Count 1.68 10^3/uL (1.2-3.4); Absolute Monocyte Count 0.47 10^3/uL (0.1-0.8); Basophils % 0.9; Eosinophils % 1.2; HCT 43.6 % (36.0-46.0); HGB 14.8 g/dL (11.2-15.7); Immature Grans % 0.2; Lymphocytes % 29.1; MCH 34.3 pg (27.0-33.0); MCHC 33.9 % (32.0-36.0); MCV 101.2 fL (80-95); MPV 11.5 fL (8.0-11.0); Monocytes % 8.1; Neutrophils % 60.5; Nucleated RBC 0 %; Platelet Count 228 10^3/uL (130-400); RBC 4.31 10^6/uL (3.93-5.22); RDW 12.2 % (11.7-14.6); RDW-SD 46.6 fL; WBC 5.78 10^3/uL (4.4-10.8)
[2019-12-20 18:58] LABS: Bilirubin Negative (Negative); Blood Trace-intact (Negative); Clarity Clear (Clear); Glucose 100 mg/dL (Negative); Ketones Negative (Negative); Leukocyte Esterase Negative (Negative); Nitrite Negative (Negative); Urobilinogen 0.2 EU/dL (Up TO 0.2)
[2019-12-20 19:01] LABS: ALT 33 U/L (14-59); AST 28 U/L (15-37); Albumin 4.1 g/dL (3.4-5.0); Alkaline Phosphatase 66 U/L (46-116); Anion Gap 11.6 mmol/L (3-11); BUN 6 mg/dL (7-18); Bilirubin, Total 0.5 mg/dL (0.2-1.0); CO2 26.4 mmol/L (21.0-32.0); CREATININE 0.68 mg/dL (0.55-1.02); Calcium 9.8 mg/dL (8.5-10.1); Chloride 102 mmol/L (98-107); Glucose 96 mg/dL (74-106); Potassium 4.6 mmol/L (3.5-5.1); Sodium 140 mmol/L (136-145); Total Protein 7.7 g/dL (6.4-8.2)
[2019-12-20 19:06] LABS: Bacteria Negative HPF (Negative); C & S Indicated? No; Casts Negative LPF (Negative); Crystals Negative HPF (Negative); Epithelial Cells Few HPF (Negative); Mucus Negative (Negative); Other Cells Negative (Negative); RBC 0-2 HPF (0-2); WBC 0-2 HPF (0-5)
[2019-12-24 15:44] LABS: IgA 270 mg/dL (85-499); Interpretation (See Note); Tissue Transglutaminase IgA <1.2 U/mL (<4.0)
== END 2019-12-20 10:36 ==
LOC: NCHCN 10:16
PROVIDERS: PCP Nurse Practitioner Family; Visit Provider Nurse Practitioner Family
DX: R19.7 Diarrhea, unspecified (principal)
CPT/HCPCS: 80053; 82784; 83516; 81003; 81015; 85025

== ENCOUNTER 2020-02-28 14:03 | Outpatient (REF) | payer OTHER, SELFPAY ==
[2020-03-03 11:30] LABS: Patient Race White; SARS-CoV-2 RNA Undetected (Undetected); SARS-CoV-2 Specimen Source Nasal
== END 2020-02-28 14:23 ==
LOC: NCHCN 14:03
PROVIDERS: PCP Nurse Practitioner Family; Visit Provider Nurse Practitioner Family
DX: Z20.828 Contact with and (suspected) exposure to other viral communicable diseases (principal)
CPT/HCPCS: U0003

== ENCOUNTER 2020-03-07 16:06 | Outpatient (REF) | payer OTHER, SELFPAY ==
[2020-03-07 23:43] LABS: Folate 4.7 ng/mL (8.6-20.0); Vitamin B12 659 pg/mL (193-986)
== END 2020-03-07 16:26 ==
LOC: NCHCN 16:06
PROVIDERS: PCP Nurse Practitioner Family; Visit Provider Nurse Practitioner Family
DX: D53.9 Nutritional anemia, unspecified (principal); R19.7 Diarrhea, unspecified
CPT/HCPCS: 82607; 82746

== ENCOUNTER 2020-04-08 00:38 | Outpatient (CLI) | payer OTHER, SELFPAY ==
--- NOTE | 2020-04-08 06:45 | DI.US_ITS ---
EXAM: US PELVIS TRANSVAGINAL CLINICAL HISTORY: recurrent L and R LQ pain,S/P HYSTERECTOMY AND BSO,ENDOMETRIOSIS. TECHNIQUE: Transabdominal and transvaginal pelvic ultrasound was performed using standard protocol. COMPARISON: US US RENAL PELVIC TRANSVAGINAL from 05/31/2019 FINDINGS: KIDNEYS: Kidneys are symmetric in size. No evidence of renal calculi. No evidence of hydronephrosis. No renal mass or cyst identified. UTERUS: The patient is status post hysterectomy. OVARIES: The patient is status post bilateral oophorectomy. No adnexal masses present. CUL-DE-SAC: Free fluid: None. Other: None. IMPRESSION: 1. Normal sonographic appearance of the kidneys. 2. Status post hysterectomy and bilateral oophorectomy. 3. No evidence of a pelvic mass sonographically. DATA REPOSITORY:
== END 2020-04-08 00:58 ==
PROVIDERS: PCP Nurse Practitioner Family; Visit Provider Obstetrics & Gynecology Gynecology
DX: R10.31 Right lower quadrant pain (principal); R10.32 Left lower quadrant pain; Z90.722 Acquired absence of ovaries, bilateral; Z90.710 Acquired absence of both cervix and uterus
CPT/HCPCS: 76830; 76856

== ENCOUNTER → 2020-07-21 09:05 | Outpatient (BNVA) | payer OTHER, SELFPAY | PROVIDERS: PCP Nurse Practitioner Family; Referring Provider Nurse Practitioner Family; Visit Provider Surgery | DX: R19.7 Diarrhea, unspecified (principal) | CPT/HCPCS: 99202; 99213 ==

== ENCOUNTER → 2020-08-25 13:20 | Outpatient (BNVA) | payer OTHER, SELFPAY | PROVIDERS: PCP Nurse Practitioner Family; Referring Provider Nurse Practitioner Family; Visit Provider Surgery | DX: K21.9 Gastro-esophageal reflux disease without esophagitis (principal); K58.2 Mixed irritable bowel syndrome; R19.7 Diarrhea, unspecified | CPT/HCPCS: 99213; 99214 ==

== ENCOUNTER 2020-12-17 15:50 | Outpatient (CLI) | payer OTHER, SELFPAY ==
--- NOTE | 2020-12-17 | DI.RAD_ITS ---
Exam(s) XR FOOT RT COMPLETE EXAM: XR FOOT RT COMPLETE CLINICAL HISTORY: RT FOOT PAIN M79.671. TECHNIQUE: 2D digital imaging was performed. COMPARISON: None FINDINGS: No evidence of fracture or diastasis of the Lisfranc joint. Bone density is normal. No osseous lesions. No inferior calcaneal spur. No osseous tarsal coalitio n. Bone density appears normal. IMPRESSION: DATA REPOSITORY: RADIATION DOSE DELIVERED:
== END 2020-12-17 16:10 ==
PROVIDERS: PCP Nurse Practitioner Family; Visit Provider Nurse Practitioner Family
DX: M79.671 Pain in right foot (principal)
CPT/HCPCS: 73630

== ENCOUNTER 2021-06-24 14:54 | Outpatient (CLI) | payer OTHER, SELFPAY ==
--- NOTE | 2021-06-24 | DI.RAD_ITS ---
Exam(s) XR TOE RT FIFTH EXAM: XR TOE RT FIFTH CLINICAL HISTORY: RT FOOT PAIN, M79.671, S/P JAMMING TOE AGAINST WORKSTATION TECHNIQUE: COMPARISON: CR XR FOOT RT COMPLETE from 12/17/2020 FINDINGS: Three views were obtained. There is a fracture of the base of the proximal phalanx of the 5th toe wi th mild displacement. No additional fracture seen. Review of prior radiographs of December 17 show a possible subtle transverse fracture of the base the proximal phalanx of the 5th toe at that time. There does appear to be some chronic cortical deformi ty of the base of the proximal phalanx secondary to that presumably healed fracture, but there also a ppears to be an acute fracture on today's films. IMPRESSION: RADIATION DOSE DELIVERED: Total DLP
== END 2021-06-24 15:14 ==
PROVIDERS: PCP Nurse Practitioner Family; Visit Provider Physician Assistant Medical
DX: M79.671 Pain in right foot (principal); S92.911A Unspecified fracture of right toe(s), initial encounter for closed fracture; X58.XXXA Exposure to other specified factors, initial encounter
CPT/HCPCS: 73660

== ENCOUNTER 2021-07-20 08:43 | Emergency (ER) | payer OTHER, SELFPAY ==
[2021-07-20 08:46] VITALS: BP 146/78; PULSE 92; RESP 16; TEMP 36.6; O2SAT 99
--- NOTE | 2021-07-20 09:25 | ED.GENADUL_ITS ---
Discharge Plan Disposition Patient Disposition: HOME Condition: Improving Discharge Details Clinical Impression: Left rib fracture Primary Care Provider: David Nava ED Provider: Jazmín Doan Home Meds and New Rx's Prescriptions: New oxycodone 5 mg capsule 5 mg PO BID PRN (Reason: pain) Qty: 6 0RF Continued calcium carbonate-vitamin D3 600-125 mg-unit tablet 1 tab PO DAILY 0RF vitamin B complex [B Complex-Vitamin B12] Tablet 1 tab PO DAILY 0RF esomeprazole magnesium 40 mg capsule,delayed release(DR/EC) 40 mg PO DAILY 0RF escitalopram oxalate 5 mg tablet 20 mg PO DAILY 0RF ibuprofen 400 mg Tablet 400 mg PO PRN [id number] Discharge Instructions Instructions: Oxycodone, Rapid Release (By mouth), Rib Fracture (ED) Additional Instructions: Please return immediately to the emergency department if you develop any new or worsening symptoms, if your condition does not improve as expected, or if you become otherwise concerned. It is extremely important that you call soon as possible to make an appointment to be seen in follow-up for this visit by your primary care doctor. Please do not take oxycodone with alcohol or other sedating drugs, sedating prescription or sedating [id number] medication. Please do not drive or operate machinery while taking oxycodone. Stand Alone Forms: Work Release Referrals: David Nava, COMPUTER [employer]P DESK REPRESENTATIVE [Primary Care Provider] - Discharge Data Discharge Date/Time-TO BE ENTERED AT DEPARTURE: 07/20/21 11:35 Medical Decision Making Nidia Bowman is a 36-year-old woman with history of GERD, irritable bowel syndrome presenting to emergency department with rib pain. Patient reports that approximately 1 week ago she tripped over some shoes and struck her left lateral rib on an open cabinet door. She reports that she had significant pain in the area since the injury, but that it has been gradually improving. She reports th at yesterday she coughed and had acute worsening of left lateral rib pain at the site of the initial injury, now with radiation into the left lower anterior ribs and into her left shoulder. Patient reports that pain is worse with any movement. She denies any other pain, fever, shortness of breath, vomiting, diarrhea, numbness, weakness, rash. She reports that she has a baseline occasional cough which is unchanged. She reports that she feels otherwise well and in her usual state of health. She states that her activities at home have been limited since yesterday due to pain. On exam patient is well and nontoxic-appearing. There is tenderness to the left lateral lower ribs that reproduces pain. No crepitus/deformity. Lungs are clear to auscultation bilaterally without decreased breath sounds. Concern for rib fracture, contusion, pneumothorax, other. Exam history at this time not consistent with sepsis, pulmonary embolism, acute coronary syndrome, acute aortic process, splenic rupture, other acute emergent intra-abdominal process. Bedside POCUS shows normal lung sliding and anterior and lateral lung alonzo, posterior field not assessed secondary to patient's report of pain with movement. Plan for chest x-ray, rib films. Patient was offered IV pain medication but declined as she reports that she drove here and does not want to take anything at this time that might alter her mentation. She reports that she took ibuprofen at 7:00 this morning. Plan for p.o. Tylenol. Rib films shows 9th rib fracture, no other acute process. I discussed nerve block by Anesthesia with Pt, who is amenable. Anesthia called and will see Pt at bedside. Nerve block performed by anesthesia. Pt reports some improvement in pain. Plan for tylenol, ibuprofen, with oxycodone for breakthrough pain. I discussed safe opiate use with Pt who verbalized understanding. I had a discussion with Patient regarding return to emergency department precautions, home care, and importance of outpatient follow-up. Pt verbalizes understanding of the plan and is amenable. Patient discharged to home with clear plan for outpatient follow- up. All questions were answered. Disposition decision was made weighing the risks and benefits of hospitalization versus outpatient treatment, the risk for further decompensation, and the patient's wishes. Imaging Data Radiologic Study: Attestation: I personally reviewed and interpreted this imaging study as follows: Radiologist's impression: EXAM:? XR RIBS LT W PA ? LAT CHEST CLINICAL HISTORY:? trauma, left rib pain TECHNIQUE:? 2D digital imaging was performed.? PA and lateral chest.? For oblique views of the left ribs. COMPARISON:? CR XR shoulder LT complete 2+V from 02/20/2018 FINDINGS: LUNGS Clear. No pleural abnormality seen. HEART: Normal. MEDIASTINUM: Normal. Bone: Minimally displaced fracture left 9th rib. IMPRESSION: Left 9th rib fracture.? No acute pulmonary findings. HPI General Date/Time Provider Initiated Documentation: 07/20/21 09:02 . Limitations to Documentation: no limitations . Information obtained by: patient, RN notes reviewed and old records reviewed . HPI Narrative: Nidia Bowman is a 36-year-old woman with history of GERD, irritable bowel syndrome presenting to emergency department with rib pain. Patient reports that approximately 1 week ago she tripped over some shoes and struck her left lateral rib on an open cabinet door. She reports that she had significant pain in the area since the injury, but that it has been gradually improving. She reports that yesterday she coughed and had acute worsening of left lateral rib pain at the site of the initial injury, now with radiation into the left lower anterior ribs and into her left anterior chest. Patient reports that pain is worse with any movement. She denies any other pain, fever, shortness of breath, vomiting, diarrhea, numbness, weakness, rash. She reports that she has a baseline occasional cough which is unchanged. She reports that she feels otherwise well and in her usual state of health. She states that her activities at home have been limited since yesterday due to pain. She reports that if she stays very still pain is minimal and located just in the left lateral lower ribs. Related Data Home Medications Medication Instructions Recorded Confirmed ibuprofen 400 mg tablet 400 mg PO PRN PRN 09/27/18 07/20/21 calcium carbonate-vitamin D3 600 1 tab PO DAILY tab 12/06/18 07/20/21 mg-125 unit tablet esomeprazole magnesium 40 mg 40 mg PO DAILY 06/17/20 07/20/21 capsule,delayed release vitamin B complex (B 1 tab PO DAILY 06/17/20 07/20/21 Complex-Vitamin B12) escitalopram oxalate 5 mg tablet 20 mg PO DAILY 07/01/21 07/20/21 oxycodone 5 mg capsule 5 mg PO BID PRN #6 cap 07/20/21 Previous Rx's Medication Instructions Recorded oxycodone 5 mg capsule 5 mg PO BID PRN #6 cap 07/20/21 Allergies Allergy/AdvReac Type Severity Reaction Status Date / Time vancomycin Allergy Severe itchy Unverified 07/20/21 08:52 cefuroxime axetil Allergy Unknown red bumpy Unverified 07/20/21 08:52 [From Ceftin] nose General Stated Complaint: Nk/Back Pain DONNA: 4 Review of Systems Narrative: Constitutional: denies fevers Eyes: denies eye pain ENT: denies ear pain, dental pain, sore throat Cardiovascular: Reports left lower lateral rib pain as per HPI, denies edema Respiratory: denies SOB, reports baseline unchanged cough GI: denies abdominal pain, vomiting, diarrhea : denies flank pain MSK: denies back pain, neck pain, arthralgias, myalgias Skin: denies rash Neuro: denies headaches, numbness, weakness PFSH All Active Problems (Updated 07/20/21 @ 11:32 by Jazmín Doan MD) Left rib fracture (Acute) Irritable bowel syndrome with constipation and diarrhea (Acute) GERD (gastroesophageal reflux disease) (Chronic) Macrocytic anemia (Acute) Diarrhea (Acute) Onset after her most recent surgery. Patient unable to provide stool sample will treat empirically with metronidazole. Menopausal and female climacteric states (Acute) 04/2019 venlafaxine for postsurgical menopause Tobacco use (Acute 04/20/13) Counseled on several occasions currently pre-contemplative quitting. IBS (irritable colon syndrome) (Acute 02/21/14) diarrhea/constipation worsened after most recent laparoscopy. Neg stool cx. Neg CT. Pulmonary nodule seen on imaging study (Acute 02/21/14) incidental finding on LLL at time of abd/pelvis CT. Pt will f/u with PCP. Medical History Abnormal uterine bleeding (AUB) 11/2018. After laparoscopic bilateral salpingo-oophorectomy to treat recurrent endometriosis and pelvic pain. Rx with HRT. 01/2019 Rx with daily norethindrone Chronic pelvic pain in female Secondary to recurrent endometriosis and polycystic ovaries. Cyst of ovary 03/2013 persistent R ovarian cysts. s/p R ovarian cystectomy 08/23/13. endometriomas. 01/2015 Polycystic ovaries. Not endometriomas. 04/2014 pt referred to [facility] dept. Cysts of both ovaries (05/15/15) polycystic. Not improved with continuous OCPs since 01/2015. 06/2018 Referred to [facility] at [facility]. Will begin DepoLupron again. 09/27/2018 current PCOS symptoms despite treatment with Depo-Lupron Endometriosis longstanding hx of pelvic pain. DX in 2012. Stage 4 with endometriomas in 08/2013. Endometriosis (06/20/13) s/p operative laparoscopy 08/2013. Rx for DepoLupron on 12/10/13. 01/03/14 Operative laparoscopy and ovarian cystectomy for recurrent endometrioma. Pt has developed PCOs and has been referred to [facility] with repeat laparoscopy and decompression of ovarian cysts with appendectomy . She has since been eval at [facility] ([facility]) and referred to [facility] for further care. 06/16/16. Hiatal hernia Irritable colon Pelvic pain (05/15/15) Multiple ovarian cystectomies treated with Depo-Lupron. Polycystic ovaries symptoms persist. Patient wishes bilateral oophorectomy Recurrent dislocation of patellofemoral joint Tobacco dependence, continuous Surgical History (Updated 07/01/21 @ 11:10 by Patt Kaur RN) Appendectomy (~2015) performed at time of operative laparoscopy at [facility] for polycystic ovaries Arthroplasty of knee Pt denies knee replacement Colonoscopy - IV Sedation 2002 and 2012 Diagnostic Laproscopy 2004 - for pelvic pain. finding of Elayne's duct cyst. No mention of endometriosis. 2013 in [place] - for pelvic pain. had endometrioma 08/23/13 persistent R ovarian cyst. 2 endometriomas with ovarian cystectomy. [facility] 01/03/14 laparoscopic R ovarian cystectomy - endometrioma. [facility]. 2016 Operative laparoscopy [facility]. Polycystic ovaries, not all cysts removed. 07/06/16 Ovarian cystectomy [facility]. Endoscopy 2002 and 2012 H/O bilateral oophorectomy 11/01/18 with bilateral salpingectomy. No endometriosis in ovarian tissue. Inflammatory changes only. History of arthroscopic knee surgery Bilateral arthroscopy, torn meniscus L, R patellar subluxation History of laparoscopic-assisted vaginal hysterectomy 03/2019. Procedure performed after BSO. Uterine pathology benign. Incision, Tendon Sheath R wrist. 04/2014 Dr Coats. Family History Mother No problems noted. Father No problems noted. Social History Smoking/Tobacco Use Status: Current every day Tobacco Type: cigarettes Smoking packs per day: 0.5 Smoking cigarettes per day: 10.0 Years smoked: 24 Smoking pack-years: 12.00 Smoking risk assessment performed?: Yes Alcohol Intake: current Alcohol Intake frequency: a few times a week Drug use: Never Substance use type: does not use Number of Children: 0 Current gender identity: female Seatbelt use: always Do you feel safe at home: Yes Do you feel safe in your relationship?: Yes History History 2 Para Hx # Term Pregnancies 0 Multiple births Hx # Pregnancies Ectopic pregnancies AB induced Hx Number of Living Children AB spontaneous Exam Narrative Exam Narrative: Constitutional: well and cne-avgit-lamldkvos, pleasant, conversing normally, appears uncomfortable with movement HENT: head atraumatic/normocephalic/normal inspection, mucous membranes moist Eyes: conjunctiva normal, sclera normal, pupils 3mm b/l Neck: no stridor, normal ROM, trachea midline Chest: Healing abrasion left lower lateral ribs, no erythema/drainage/edema, otherwise normal inspection of the chest, tenderness to palpation of the left lower lateral ribs that reproduces pain, no other chest wall tenderness to palpation, no crepitus, no deformity Resp: normal work of breathing, LCTAB Cardio: normal rate, normal rhythm, no murmur appreciated GI: abdomen soft, non-tender, non-distended Back: normal inspection, no rash Skin: warm, dry, normal color, no rash Neuro: alert, not altered, grossly non-focal, normal tone Ext: no edema Psych: normal mood, normal affect, normal behavior Course Vital Signs Vital signs: Vital Signs Temperature 36.6 C 07/20/21 08:46 Pulse 92 H 07/20/21 08:46 Respiratory Rate 16 07/20/21 08:46 Blood Pressure 146/78 H 07/20/21 08:46 Pulse Oximetry 99 07/20/21 08:46 Temperature 36.6 C 07/20/21 08:46 Temperature Source Skin 07/20/21 08:46 Pulse 92 H 07/20/21 08:46 Respiratory Rate 16 07/20/21 08:46 Respiratory Effort 07/20/21 08:51 Blood Pressure 146/78 H 07/20/21 08:46 Blood Pressure Position Sitting 07/20/21 08:46 Pulse Oximetry 99 07/20/21 08:46 Oxygen Delivery Method Room Air 03/28/22 08:46 Oxygen Flow Rate 0 07/20/21 08:46 Pain Level 9 07/20/21 08:46 PAWSS Have you Been Recently Intoxicated or Drunk Within the Last 30 days?: Yes Have you Ever Experienced Previous Episodes of Alcohol Withdrawal?: No Have you ever Experienced Withdrawal Seizures?: No Have you ever Experienced Delirium Tremens(DT)s?: No Have you ever undergone Alcohol Rehabilitation Treatment (i.e, inpt ot outpatient treatment programs)?: No Have you ever Experienced Blackouts?: No Have you ever Combined Alcohol with other Downers within the last 90 days?: No Have you ever Combined Alcohol with any other Substance of Abuse during the last 90 days?: No Positive Blood Alcohol level on Presentation? [PCS.BAL]: No Evidence of Increased Autonomic Activity (i.e. HR>120, tremor, sweating, agitation, nausea)?: No Result: 1
--- NOTE | 2021-07-20 09:39 | DI.RAD_ITS ---
Exam(s) XR RIBS LT W PA LAT CHEST EXAM: XR RIBS LT W PA LAT CHEST CLINICAL HISTORY: trauma, left rib pain TECHNIQUE: 2D digital imaging was performed. PA and lateral chest. For oblique views of the left r ibs. COMPARISON: CR XR shoulder LT complete 2+V from 02/20/2018 FINDINGS: LUNGS Clear. No pleural abnormality seen. HEART: Normal. MEDIASTINUM: Normal. Bone: Minimally displaced fracture left 9th rib. IMPRESSION: Left 9th rib fracture. No acute pulmonary findings. DATA REPOSITORY: RADIATION DOSE DELIVERED:
[2021-07-20] MEDS: Acetaminophen 500 MG TAB 1000 MG PO (09:42)
[2021-07-20 10:23] VITALS: BP 126/66; PULSE 76; PULSE 82; RESP 18; O2SAT 98
[2021-07-20 10:24] VITALS: PULSE 81; RESP 18; O2SAT 99
[2021-07-20 10:30] VITALS: BP 112/70; PULSE 76; PULSE 85; RESP 31; O2SAT 98
[2021-07-20 10:31] VITALS: PULSE 95; RESP 25; O2SAT 98
--- NOTE | 2021-07-20 10:35 | W.ANESNERVE ---
Nerve Block Single Injection Procedure Date and Time Date Performed: 07/20/21 Procedure Start: Location Where Procedure Performed Procedure Location: Emergency Department Reason Performed: Acute Pain Management (Left rib pain, pain with deep breaths and movement, fracture of 9th rib) Pain Diagnosis: Rib Pain Requesting Provider: Jazmín Doan Timeout Performed Timeout Performed: Yes Monitoring Used ECG, Blood Pressure and SpO2 Sterility Sterility: Hand Hygiene, Surgical Cap, Surgical Mask, Sterile Gloves and Chlorhexidine Sedation Given During Procedure Sedation Given (Indicate Dose Given): No Sedation given Patient Mental Status Patient Mental Status: Awake Nerve Block 1st Nerve Block: Laterality: Left Block Type: Erector Spinae (Upper) Needle / Catheter Used: 100mm SonoPlex II Local Anesthetic Bolus (Indicate Dose Given): Lidocaine used for local infiltration of skin, Injected in 3-5ml increments after negative blood aspiration, Bupivacaine 0.5% Dose:: 20 ml and Exparel Dose:: 10 ml Additives (Indicate Dose Given): None Ultrasound: Sterile probe cover and gel used Ultrasound Image Saved?: Yes Nerve Stimulator: Not Used Paresthesia: None Post Procedure Pain score (0-10): 7 Procedure Tolerated: No Complications and Patient tolerated well Procedure Outcome: Successful Performed By: Deepika Dietrich
== END 2021-07-20 11:35 | disposition home or self-care (01) ==
PROVIDERS: Emergency Provider Student in an Organized Health Care Education/Training Program; PCP Nurse Practitioner Family
DX: R07.81 Pleurodynia (principal); S22.32XA Fracture of one rib, left side, initial encounter for closed fracture; W01.198A Fall on same level from slipping, tripping and stumbling with subsequent striking against other object, initial encounter; Y92.019 Unspecified place in single-family (private) house as the place of occurrence of the external cause
CPT/HCPCS: 64450; 99284; 71046; 71100

== ENCOUNTER 2021-10-28 02:49 | Outpatient (CLI) | payer OTHER, SELFPAY ==
[2021-10-28 12:52] LABS: Abs Immature Grans 0.01 10^3/uL (0.0-0.06); Absolute Basophil Count 0.06 10^3/uL (0.0-0.2); Absolute Eosinophil Count 0.15 10^3/uL (0.0-0.7); Absolute Lymphocyte Count 2.06 10^3/uL (1.2-3.4); Absolute Neutrophil Count 3.99 10^3/uL (1.2-6.7); Basophils % 0.9; Eosinophils % 2.2; HCT 41.5 % (36.0-46.0); HGB 14.2 g/dL (11.2-15.7); Immature Grans % 0.1; Lymphocytes % 29.6; MCH 33.4 pg (27.0-33.0); MCHC 34.2 % (32.0-36.0); MCV 98 fL (80-95); MPV 10.1 fL (8.0-11.0); Neutrophils % 57.2; Platelet Count 275 10^3/uL (130-400); RBC 4.25 10^6/uL (3.93-5.22); RDW 12.3 % (11.7-14.6); RDW-SD 44.4 fL; WBC 6.97 10^3/uL (4.4-10.8)
[2021-10-29 10:13] LABS: Lyme Ab w Rflx to Lyme Confirm Negative (Negative)
[2021-10-30 16:18] LABS: Anaplasma phagocytophilum Negative (Negative); B. miyamotoi PCR Negative (Negative); Babesia divergens/MO-1 Negative (Negative); Babesia duncani Negative (Negative); Babesia microti Negative (Negative); Ehrlichia chaffeensis Negative (Negative); Ehrlichia ewingii/canis Negative (Negative); Ehrlichia muris eauclairensis Negative (Negative)
== END 2021-10-28 02:50 | disposition home or self-care (01) ==
LOC: LOS 02:50
PROVIDERS: PCP Nurse Practitioner Family; Visit Provider Physician Assistant
DX: T14.8XXA Other injury of unspecified body region, initial encounter (principal); W57.XXXA Bitten or stung by nonvenomous insect and other nonvenomous arthropods, initial encounter; R53.83 Other fatigue; L53.8 Other specified erythematous conditions
CPT/HCPCS: 36415; 87798; 85025; 86618

== ENCOUNTER 2022-03-15 15:12 | Outpatient (REF) | payer OTHER, SELFPAY ==
[2022-03-15 18:44] LABS: Abs Immature Grans 0.01 10^3/uL (0.0-0.06); Absolute Basophil Count 0.07 10^3/uL (0.0-0.2); Absolute Eosinophil Count 0.07 10^3/uL (0.0-0.7); Absolute Lymphocyte Count 2.68 10^3/uL (1.2-3.4); Absolute Monocyte Count 0.57 10^3/uL (0.1-0.8); Absolute Neutrophil Count 5.92 10^3/uL (1.2-6.7); Basophils % 0.8; Eosinophils % 0.8; HCT 41.2 % (36.0-46.0); Immature Grans % 0.1; Lymphocytes % 28.8; MCH 34.1 pg (27.0-33.0); MCV 101 fL (80-95); MPV 10.6 fL (8.0-11.0); Monocytes % 6.1; Neutrophils % 63.4; Platelet Count 258 10^3/uL (130-400); RDW 12.4 % (11.7-14.6); RDW-SD 46.4 fL; WBC 9.32 10^3/uL (4.4-10.8)
[2022-03-15 19:06] LABS: Iron 146 ug/dL (50-170); Total Iron Binding Capacity 411 ug/dL (250-450); Transferrin Sat 36 % (15-50)
[2022-03-15 19:27] LABS: ALT 22 U/L (14-59); AST 23 U/L (15-37); Albumin 4.2 g/dL (3.4-5.0); Alkaline Phosphatase 90 U/L (46-116); Anion Gap 10.4 mmol/L (3-11); BUN 6 mg/dL (7-18); Bilirubin, Total 0.4 mg/dL (0.2-1.0); CO2 26.6 mmol/L (21.0-32.0); CREATININE 0.9 mg/dL (0.55-1.02); Calcium 9.6 mg/dL (8.5-10.1); Chloride 99 mmol/L (98-107); Glucose 125 mg/dL (74-106); Sodium 136 mmol/L (136-145); Vitamin B12 959 pg/mL (193-986)
== END 2022-03-15 15:13 | disposition home or self-care (01) ==
LOC: NCHCN 15:12
PROVIDERS: PCP Nurse Practitioner Family; Visit Provider Nurse Practitioner Family
DX: D53.9 Nutritional anemia, unspecified (principal); F10.10 Alcohol abuse, uncomplicated
CPT/HCPCS: 80053; 82607; 82746; 83540; 83550; 85025

== ENCOUNTER 2023-02-22 16:11 | Outpatient (REF) | payer OTHER, SELFPAY ==
[2023-02-22 17:36] LABS: Abs Immature Grans 0.02 10^3/uL (0.0-0.06); Absolute Basophil Count 0.05 10^3/uL (0.0-0.2); Absolute Eosinophil Count 0.12 10^3/uL (0.0-0.7); Absolute Lymphocyte Count 2.04 10^3/uL (1.2-3.4); Absolute Monocyte Count 0.51 10^3/uL (0.1-0.8); Basophils % 0.6; Eosinophils % 1.5; HCT 41.6 % (36.0-46.0); HGB 14.2 g/dL (11.2-15.7); Immature Grans % 0.2; Lymphocytes % 25.4; MCH 32.7 pg (27.0-33.0); MCHC 34.1 % (32.0-36.0); MCV 96 fL (80-95); MPV 10.2 fL (8.0-11.0); Monocytes % 6.3; Platelet Count 274 10^3/uL (130-400); RBC 4.34 10^6/uL (3.93-5.22); RDW 12.4 % (11.7-14.6); WBC 8.04 10^3/uL (4.4-10.8)
[2023-02-22 19:07] LABS: ALT 21 U/L (14-59); AST 24 U/L (15-37); Albumin 4.1 g/dL (3.4-5.0); Alkaline Phosphatase 88 U/L (46-116); BUN 5 mg/dL (7-18); Bilirubin, Total 0.4 mg/dL (0.2-1.0); CREATININE 0.8 mg/dL (0.55-1.02); Calcium 9.8 mg/dL (8.5-10.1); Chloride 102 mmol/L (98-107); Estimated GFR 95.46 (mL/min/1.73m2); Glucose 99 mg/dL (74-106); Potassium 4.4 mmol/L (3.5-5.1); Sodium 139 mmol/L (136-145); TSH (W/Ref FT4) 1.06 uIU/mL (0.36-3.74); Total Protein 7.5 g/dL (6.4-8.2); Vitamin B12 581 pg/mL (193-986)
[2023-02-22 19:17] LABS: Iron 158 ug/dL (50-170); Total Iron Binding Capacity 398 ug/dL (250-450); Transferrin Sat 40 % (15-50)
== END 2023-02-22 16:12 | disposition home or self-care (01) ==
LOC: NCHCN 16:11
PROVIDERS: Visit Provider Nurse Practitioner Family
DX: D53.9 Nutritional anemia, unspecified (principal); F43.10 Post-traumatic stress disorder, unspecified; F41.1 Generalized anxiety disorder; R19.7 Diarrhea, unspecified; F17.210 Nicotine dependence, cigarettes, uncomplicated
CPT/HCPCS: 80053; 82607; 83540; 83550; 84443; 85025

== ENCOUNTER 2023-09-17 18:14 | Emergency (ER) | payer OTHER, SELFPAY ==
[2023-09-17] VITALS (23 sets, daily range): BP systolic 126–165; BP diastolic 70–91; PULSE 75–98; RESP 13–27; TEMP 36.1; O2SAT 97–100
--- NOTE | 2023-09-17 18:15 | RT.EKG_ITS ---
APPROVED REPORT Exam: Resting ECG Reason for Exam: chest pain Patient Location: E HR:88 bpm ECG Measurements Heart Rate 88 AXIS WY 167 P 74 QRSd 77 QRS 75 QT 365 T 59 QTc 443 Conclusion Sinus rhythm...normal P axis, V-rate 60- 99 Probable left atrial enlargement...P >50mS, <-0.10mV V1 sinus rhythm, normal axis, normal intervals, non ischemic
--- NOTE | 2023-09-17 18:44 | W.ED.GENAD ---
Discharge Plan Disposition Patient Disposition: Home Condition: Stable Discharge Details Clinical Impression: Costochondritis Primary Care Provider: SEAN FLORES ED Provider: oRdriguez Osorio Home Meds and New Rx's Prescriptions: Continued calcium carbonate-vitamin D3 600-125 mg-unit tablet 1 tab PO DAILY prazosin 1 mg capsule 1 mg PO QHS doxycycline hyclate 100 mg capsule 100 mg PO BID Qty: 42 0RF vitamin B complex [B Complex-Vitamin B12] Tablet 1 tab PO DAILY esomeprazole magnesium 40 mg capsule,delayed release(DR/EC) 40 mg PO DAILY escitalopram oxalate 5 mg tablet 20 mg PO DAILY ibuprofen 400 mg Tablet 400 mg PO PRN PRN Discharge Instructions Instructions: Cyclobenzaprine (By mouth), Costochondritis (ED) Additional Instructions: You were seen in the emergency department for your right-sided pleuritic chest pain. There is no acute abnormality seen on your chest CT, cardiac workup is negative, there is no blood clot in your lung or pneumonia, no evidence of soft tissues of infection to the area, you have no elevation of white blood cells. He had an elevated lactate which is likely related to some moderate alcohol ingestion and being in the sun all day related to mild dehydration. Please apply gentle heat to the area, try the to go muscle relaxers that we provided as well as take 2 Aleve in the morning and 2 in the evening for a few days before reducing to 1 Aleve twice per day. Please return for any worsening chest pain, shortness of breath, cough or coughing up blood, dizziness, shortness of breath with exertion. Referrals: SEAN FLORES, [employer] [Primary Care Provider] - Discharge Data Discharge Date/Time-TO BE ENTERED AT DEPARTURE: 09/17/23 21:43 HPI General Date/Time Provider Initiated Documentation: 09/17/23 18:22. HPI Narrative: 38 year-old female presents to ED today by POV/ambulating with a chief complaint of R sided pleuritic chest pain, pain with deep inspiration with onset for one week. Quality described as sharp stabbing pain in R mid anterior chest, no radiation to diaphoresis, shortness of breath, crushing chest pain, near syncope, dizziness, fever, cough. Severity is described as severe. Palliating factors include OTC analgesics without much relief. Provoking factors include nothing specific- no OCPs. Events leading up to the incident/Associated Symptoms: Patient recalls no trauma, has been drinking ETOH in the sun today. Patient not anticoagulated. Related Data Home Medications Medication Instructions Recorded Confirmed ibuprofen 400 mg tablet 400 mg PO PRN PRN 09/27/18 10/09/21 calcium carbonate-vitamin D3 600 1 tab PO DAILY 12/06/18 10/09/21 mg-125 unit tablet esomeprazole magnesium 40 mg 40 mg PO DAILY 06/17/20 10/09/21 capsule,delayed release vitamin B complex (B 1 tab PO DAILY 06/17/20 10/09/21 Complex-Vitamin B12 tablet) escitalopram oxalate 5 mg tablet 20 mg PO DAILY 07/01/21 10/09/21 doxycycline hyclate 100 mg capsule 100 mg PO BID #42 caps 10/09/21 10/09/21 prazosin 1 mg capsule 1 mg PO QHS 10/09/21 10/09/21 Previous Rx's Medication Instructions Recorded doxycycline hyclate 100 mg capsule 100 mg PO BID #42 caps 10/09/21 Allergies Allergy/AdvReac Type Severity Reaction Status Date / Time vancomycin Allergy Severe itchy Unverified 10/09/21 10:10 cefuroxime axetil Allergy Unknown red bumpy Unverified 10/09/21 10:10 [From Ceftin] nose General Stated Complaint: Chest Pain DONNA: 3 Review of Systems All systems reviewed & are unremarkable except as noted in HPI and below Exam Narrative Exam Narrative: GENERAL APPEARANCE: Well-nourished, non-toxic, awake and alert, atraumatic, no acute distress. SKIN: Warm, pink, dry, intact, without rashes/lesions/ulcerations. HEAD: Normocephalic, atraumatic, normal hair distribution for gender/age. EYES: Pupils PERRLA, EOMs intact without nystagmus, normal conjunctiva, no exudates on lids/lashes. ENT: Nares patent, no circumoral cyanosis, no facial swelling NECK: Supple, trachea midline, painless cervical ROM. LUNGS/CHEST: Lungs CTA bilaterally- no rhonchi/rales/wheezes diffusely, non-labored respirations, normal A/P diameter, symmetrical expansion, no chest wall deformity, TTP to R mid-anterior ribs without crepitus/flail segment/paradoxical motion. HEART (CV/PV): Regular rate and rhythm without murmur, no peripheral edema, no JVD. ABDOMEN: Soft, non-distended, no guarding, no tenderness, negative Estrada's sign. MSK: Normal ROM, no swelling/deformity to bilateral UEs or LEs, moving all extremities without weakness, no cyanosis, spine midline without tenderness, normal curvature. NEURO: Mental Status AAOx4 - alert to person, place, time, events No facial droop, no forehead involvement. Motor: No focal weakness - strength 5/5 in bilateral UEs and LEs, proximal and distal, symmetric. Sensory: sensation intact to light touch globally. Gait normal: patient ambulated without ataxia into ED room. PSYCH: euthymic, cooperative, pleasant, appropriate speech Course Vital Signs Vital signs: Vital Signs Temperature 36.1 C L 09/17/23 18:16 Pulse 94 H 09/17/23 18:16 Blood Pressure 162/79 H 09/17/23 18:16 Pulse Oximetry 99 09/17/23 18:16 Temperature 36.1 C L 09/17/23 18:16 Temperature Source Temporal Artery Scan 09/17/23 18:16 Pulse 94 H 09/17/23 18:16 Respiratory Effort Normal, Non-Labored 09/17/23 18:31 Blood Pressure 162/79 H 09/17/23 18:16 Blood Pressure Position Sitting 09/17/23 18:16 Pulse Oximetry 99 09/17/23 18:16 Oxygen Delivery Method Room Air 09/17/23 18:16 Oxygen Flow Rate 0 09/17/23 18:16 Medical Decision Making This dictation utilizes [id number] dictation software and may contain unedited grammatical errors. 38 y/o F presents to ED today with a chief complaint of R anterior chest pain, sharp stabbing in nature- onset one week ago. Denies fever/cough/shortness of breath, denies trauma, no risk factors for PE. Has been drinking in the sun today. Patients' medical history: Tobacco dependence, GERD, pulmonary nodules. Family and social history: tobacco use, ETOH today, otherwise noncontributory. Pertinent exam findings / vital signs include benign cardiopulmonary status, right-sided mid anterior rib tenderness without crepitus, nontoxic vitals. Differential / pathologies of concern include pneumonia, ACS, pulmonary embolism, costochondritis, pleural effusion, pleurisy. Diagnostic studies of: -CBC, CMP, lactate, troponin, BNP, lipase, procalcitonin, EKG, CTA Chest PE Study. -CBC shows no leukocytosis -CMP benign -Lactate 2.7, reduced to 2.5 with IVF - likely in the setting of consuming ETOH in the sun all day, nontoxic vitals- no symptoms of infection diffusely -trop negative, BNP negative, reliable onset -Lipase wnl -Procal negative -CTA of the chest shows no PNA, no PE, no acute findings other than chronic pulmonary nodules -EKG NSR @ 88bpm, P waves followed by narrow complex QRS with normal axis, good R wave progression, no ST changes of ischemia, normal QT QTc Interventions of: -APAP, Toradol, fentanyl - cyclobenzaprine to go for possible MSK source of pain. ED Course/Assessment/Plan: 38-year-old female presents with right anterior rib pain ongoing for 1 week, she has pain with deep inspiration and significant tenderness on exam so I did perform CTA which was negative for any acute findings, she has no elevated white blood cell count, no pneumonia seen on CT, her CMP is benign, procalcitonin is negative and her lactate was mildly elevated at 2.7 which did reduce to 2.5 with 1 L of IVF likely in the setting of mild dehydration from drinking EtOH in the sun all day today. Cardiac workup is negative with reliable onset. Counseled on likely costochondritis versus pleurisy, history of tobacco use, counseled the patient on using topical Voltaren, trial of 3 tabs of cyclobenzaprine for MSK pain relief, recommend follow-up with PCP, strict return criteria for any worsening signs of pain or infection like cough, fever, respiratory distress, dizziness, chest pain. Findings not consistent with ACS, PE, pneumonia, rib fractures, malignancy. Disposition of costochondritis. Patient verbalized understanding of the plan and return to ED criteria and engaged in shared decision making. Medical Records Medical records reviewed: Yes I reviewed the patient's medical records. Imaging Data Radiologic Study: Attestation: I personally reviewed and interpreted this imaging study as follows: Imaging: CT Scan Radiologist's impression: Exam: CTA Chest With Contrast Exam date and time: 09/17/2023 7:48 PM Age: 38 years old Clinical indication: Pain; Other: Pleuritic R sided cp; Right-sided TECHNIQUE: Imaging protocol: Computed tomographic angiography of the chest with contrast. Exam focused on the arteries. 3D rendering (Not supervised by radiologist): MIP and/or 3D reconstructed images were created by the technologist. Radiation optimization: All CT scans at this facility use at least one of these dose optimization techniques: automated exposure control; mA and/or kV adjustment per patient size (includes targeted exams where dose is matched to clinical indication); or iterative reconstruction. Contrast material: [id number]; Contrast volume: 67 ml; Contrast route: INTRAVENOUS (IV); COMPARISON: CR XR RIBS LT W PA LAT CHEST 07/20/2021 9:30 AM FINDINGS: Pulmonary arteries: No pulmonary embolism. Aorta: Unremarkable. No aneurysm. Lungs: No consolidation. Few nodules and/or focal scarring, up to 0.3 cm. Pleural spaces: No significant pleural effusion. No pneumothorax. Heart: No cardiomegaly. No pericardial effusion. Lymph nodes: No pathologically enlarged lymph nodes. Bones/joints: No acute fracture. Soft tissues: Unremarkable. IMPRESSION: 1. No CT evidence of pulmonary embolism. 2. Pulmonary nodules. For patients at low risk (minimal or absent history of smoking and of other known risk factors), no routine follow-up is indicated. For patients at high risk (history of smoking or of other known risk factors), consider optional CT at 12 months. (Alannah et al., Fleischner Society, 2017) Dictated and Authenticated by: Travis Estrada MD. Ordering:EMELYN Frias MD Lab Data Lab results reviewed: Yes I reviewed the patient's lab results. Labs: Laboratory Tests Range/Units 09/17/23 09/17/23 19:08 21:16 WBC (4.4-10.8) 10^3/uL 8.48 RBC (3.93-5.22) 10^6/uL 4.05 Hgb (11.2-15.7) g/dL 13.7 Hct (36.0-46.0) % 38.9 MCV (80-95) fL 96 H MCH (27.0-33.0) pg 33.8 H MCHC (32.0-36.0) % 35.2 RDW (11.7-14.6) % 11.9 Plt Count (130-400) 10^3/uL 245 MPV (8.0-11.0) fL 9.2 Immature Gran % % 0.1 Neutrophils % % 62.3 Lymphocytes % % 27.9 Monocytes % % 8.5 Eosinophils % % 0.4 Basophils % % 0.8 Nucleated RBC % (0.0-0.3) % 0.0 Absolute Neutrophils (1.2-6.7) 10^3/uL 5.28 Absolute Lymphocytes (1.2-3.4) 10^3/uL 2.37 Absolute Monocytes (0.1-0.8) 10^3/uL 0.72 Absolute Eosinophils (0.0-0.7) 10^3/uL 0.03 Absolute Basophils (0.0-0.2) 10^3/uL 0.07 VBG Lactate (0.6-1.4) mmol/L 2.8 H* 2.5 H* Sodium (136-145) mmol/L 133 L Potassium (3.5-5.1) mmol/L 3.4 L Chloride (98-107) mmol/L 96 L Carbon Dioxide (21.0-32.0) mmol/L 23.2 Anion Gap (3-11) mmol/L 13.8 H BUN (7-18) mg/dL 4 L Creatinine (0.55-1.02) mg/dL 0.8 Est GFR (CKD-EPI 2020) (mL/min/1.73m2) 95.46 Glucose (74-106) mg/dL 87 Calcium (8.5-10.1) mg/dL 9.0 Total Bilirubin (0.2-1.0) mg/dL 0.4 AST (15-37) U/L 35 ALT (14-59) U/L 33 Alkaline Phosphatase (46-116) U/L 117 H Troponin I (< or =60) ng/L < 50 NT-Pro-B Natriuret Pep (<300) pg/mL 92 Total Protein (6.4-8.2) g/dL 8.1 Albumin (3.4-5.0) g/dL 4.0 Lipase (16-77) U/L 51 Procalcitonin ng/mL < 0.1 Quality:SDOH Health Related Social Needs: No Data to Display PFSH All Active Problems (Updated 09/17/23 @ 21:24 by WANDY Koo) Costochondritis (Acute) Irritable bowel syndrome with constipation and diarrhea (Acute) GERD (gastroesophageal reflux disease) (Chronic) Macrocytic anemia (Acute) Diarrhea (Acute) Onset after her most recent surgery. Patient unable to provide stool sample will treat empirically with metronidazole. Menopausal and female climacteric states (Acute) 04/2019 venlafaxine for postsurgical menopause Tobacco use (Acute 04/20/13) Counseled on several occasions currently pre-contemplative quitting. IBS (irritable colon syndrome) (Acute 02/21/14) diarrhea/constipation worsened after most recent laparoscopy. Neg stool cx. Neg CT. Pulmonary nodule seen on imaging study (Acute 02/21/14) incidental finding on LLL at time of abd/pelvis CT. Pt will f/u with PCP. Medical History Abnormal uterine bleeding (AUB) 11/2018. After laparoscopic bilateral salpingo-oophorectomy to treat recurrent endometriosis and pelvic pain. Rx with HRT. 01/2019 Rx with daily norethindrone Chronic pelvic pain in female Secondary to recurrent endometriosis and polycystic ovaries. Cyst of ovary 03/2013 persistent R ovarian cysts. s/p R ovarian cystectomy 08/23/13. endometriomas. 01/2015 Polycystic ovaries. Not endometriomas. 04/2014 pt referred to [facility] dept. Cysts of both ovaries (05/15/15) polycystic. Not improved with continuous OCPs since 01/2015. 06/2018 Referred to [facility] at [facility]. Will begin DepoLupron again. 09/27/2018 current PCOS symptoms despite treatment with Depo-Lupron Endometriosis longstanding hx of pelvic pain. DX in 2012. Stage 4 with endometriomas in 08/2013. Endometriosis (06/20/13) s/p operative laparoscopy 08/2013. Rx for DepoLupron on 12/10/13. 01/03/14 Operative laparoscopy and ovarian cystectomy for recurrent endometrioma. Pt has developed PCOs and has been referred to [facility] with repeat laparoscopy and decompression of ovarian cysts with appendectomy . She has since been eval at [facility] ([facility]) and referred to [facility] for further care. 06/16/16. Hiatal hernia Irritable colon Pelvic pain (01/21/16) Multiple ovarian cystectomies treated with Depo-Lupron. Polycystic ovaries symptoms persist. Patient wishes bilateral oophorectomy Recurrent dislocation of patellofemoral joint Tobacco dependence, continuous Surgical History Appendectomy (~2015) performed at time of operative laparoscopy at [facility] for polycystic ovaries Arthroplasty of knee Pt denies knee replacement Colonoscopy - IV Sedation 2002 and 2012 Diagnostic Laproscopy 2004 - for pelvic pain. finding of Elayne's duct cyst. No mention of endometriosis. 2012 in [place] - for pelvic pain. had endometrioma 08/23/13 persistent R ovarian cyst. 2 endometriomas with ovarian cystectomy. [facility] 01/03/14 laparoscopic R ovarian cystectomy - endometrioma. [facility]. 2015 Operative laparoscopy [facility]. Polycystic ovaries, not all cysts removed. 07/06/16 Ovarian cystectomy [facility]. Endoscopy 2002 and 2012 H/O bilateral oophorectomy 11/01/18 with bilateral salpingectomy. No endometriosis in ovarian tissue. Inflammatory changes only. History of arthroscopic knee surgery Bilateral arthroscopy, torn meniscus L, R patellar subluxation History of laparoscopic-assisted vaginal hysterectomy 03/2019. Procedure performed after BSO. Uterine pathology benign. Incision, Tendon Sheath R wrist. 04/2014 Dr Coats. Family History Mother No problems noted. Father No problems noted. Social History Smoking/Tobacco Use Status: Current every day Tobacco Type: cigarettes Smoking packs per day: 0.5 Smoking cigarettes per day: 10.0 Years smoked: 24 Smoking pack-years: 12.00 Smoking risk assessment performed?: Yes Alcohol Intake: current Alcohol Intake frequency: a few times a week Drug use: Never Substance use type: does not use Number of Children: 0 Current gender identity: female Seatbelt use: always Do you feel safe at home: Yes Do you feel safe in your relationship?: Yes History History 2 Para Hx # Term Pregnancies 0 Multiple births Hx # Pregnancies Ectopic pregnancies AB induced Hx Number of Living Children AB spontaneous
--- NOTE | 2023-09-17 18:45 | DI.CT_ITS ---
Exam(s) CT CHEST PE CTA EXAM: CT CHEST PE CTA CLINICAL HISTORY: pleuritic R sided CP. TECHNIQUE: Imaging Protocol: Axial CT angiography was performed with multi-slice acquisition and mu lti-planar reconstructions as well as axial, coronal and sagittal MIP reconstructions. CONTRAST MATERIAL: Intravenous: Omnipaque 350 Contrast volume:67 ml COMPARISON: CT CT ABDOMEN PELVIS W from 06/26/2019 CR XR RIBS LT W PA LAT CHEST from 07/20/2021 FINDINGS: Pulmonary Arteries: No evidence of filling defect to suggest pulmonary emboli. Tracheobronchial tree: No mucous plugging. Mediastinum and Ema: No dominant adenopathy or fluid collection. Pulmonary parenchyma: No consolidation or dominant measurable mass. Pleura: No effusion or pneumothorax. Heart: The heart is not dilated. No coronary artery calcifications are seen. Aorta: Thoracic aorta non-dilated. No dissection. Upper abdomen: No acute findings. Bones: Unremarkable for age. Tubes, Catheters, and Lines: None Soft tissues: Unremarkable. IMPRESSION: No evidence of pulmonary embolism or other acute abnormality. RADIATION DOSE DELIVERED: Total DLP DATA REPOSITORY: All CT scans at this facility are submitted to the National Radiology Data Registry (NRDR) Dose Index Registry (DIR) with the [employer] (ACR). RADIATION OPTIMIZATION: All CT scans at this facility use at least one of these dose optimization te chniques: automated exposure control; mA and/or kV adjustment per patient size (includes targeted exa ms where dose is matched to clinical indication); or iterative reconstruction.
[2023-09-17 19:13] LABS: Abs Immature Grans 0.01 10^3/uL (0.0-0.06); Absolute Basophil Count 0.07 10^3/uL (0.0-0.2); Absolute Eosinophil Count 0.03 10^3/uL (0.0-0.7); Absolute Lymphocyte Count 2.37 10^3/uL (1.2-3.4); Absolute Monocyte Count 0.72 10^3/uL (0.1-0.8); Absolute Neutrophil Count 5.28 10^3/uL (1.2-6.7); Basophils % 0.8 %; Eosinophils % 0.4 %; HCT 38.9 % (36.0-46.0); HGB 13.7 g/dL (11.2-15.7); Immature Grans % 0.1 %; Lymphocytes % 27.9 %; MCH 33.8 pg (27.0-33.0); MCHC 35.2 % (32.0-36.0); MCV 96 fL (80-95); MPV 9.2 fL (8.0-11.0); Monocytes % 8.5 %; Neutrophils % 62.3 %; Platelet Count 245 10^3/uL (130-400); RBC 4.05 10^6/uL (3.93-5.22); RDW 11.9 % (11.7-14.6); RDW-SD 41.8 fL; WBC 8.48 10^3/uL (4.4-10.8)
[2023-09-17 19:17] LABS: Lactate 2.8 mmol/L (0.6-1.4)
[2023-09-17 19:36] LABS: ALT 33 U/L (14-59); AST 35 U/L (15-37); Alkaline Phosphatase 117 U/L (46-116); Anion Gap 13.8 mmol/L (3-11); BUN 4 mg/dL (7-18); Bilirubin, Total 0.4 mg/dL (0.2-1.0); CO2 23.2 mmol/L (21.0-32.0); CREATININE 0.8 mg/dL (0.55-1.02); Chloride 96 mmol/L (98-107); Estimated GFR 95.46 (mL/min/1.73m2); Glucose 87 mg/dL (74-106); Lipase 51 U/L (16-77); NT-proBNP 92 pg/mL (<300); Potassium 3.4 mmol/L (3.5-5.1); Sodium 133 mmol/L (136-145); Total Protein 8.1 g/dL (6.4-8.2); Troponin I < 50 ng/L (< or =60)
[2023-09-17 19:46] LABS: Procalcitonin < 0.1 ng/mL
[2023-09-17] MEDS: Ketorolac 15 MG/ML VIAL IVP (19:46)
[2023-09-17] MEDS: Normal Saline 1,000 ML 1000 ML IV (19:46)
[2023-09-17] MEDS: Normal Saline - Diluent 50 ML VIAL IJ (19:47)
[2023-09-17] MEDS: Omnipaque 350 MG/ML 100 ML BTL IJ (19:48)
[2023-09-17] MEDS: fentaNYL 100 MCG/2 ML VIAL 50 MCG IVP (20:02)
--- NOTE | 2023-09-17 20:51 | DI.VRAD_ITS ---
PROCEDURE INFORMATION: Exam: CTA Chest With Contrast Exam date and time: 09/17/2023 7:48 PM Age: 38 years old Clinical indication: Pain; Other: Pleuritic R sided cp; Right-sided TECHNIQUE: Imaging protocol: Computed tomographic angiography of the chest with contrast. Exam focused on the arteries. 3D rendering (Not supervised by radiologist): MIP and/or 3D reconstructed images were created by the technologist. Radiation optimization: All CT scans at this facility use at least one of these dose optimization techniques: automated exposure control; mA and/or kV adjustment per patient size (includes targeted exams where dose is matched to clinical indication); or iterative reconstruction. Contrast material: [id number]; Contrast volume: 67 ml; Contrast route: INTRAVENOUS (IV); COMPARISON: CR XR RIBS LT W PA LAT CHEST 07/20/2021 9:30 AM FINDINGS: Pulmonary arteries: No pulmonary embolism. Aorta: Unremarkable. No aneurysm. Lungs: No consolidation. Few nodules and/or focal scarring, up to 0.3 cm. Pleural spaces: No significant pleural effusion. No pneumothorax. Heart: No cardiomegaly. No pericardial effusion. Lymph nodes: No pathologically enlarged lymph nodes. Bones/joints: No acute fracture. Soft tissues: Unremarkable. IMPRESSION: 1. No CT evidence of pulmonary embolism. 2. Pulmonary nodules. For patients at low risk (minimal or absent history of smoking and of other known risk factors), no routine follow-up is indicated. For patients at high risk (history of smoking or of other known risk factors), consider optional CT at 12 months. (Alannah et al., Fleischner Society, 2017) Dictated and Authenticated by: Travis Estrada MD. Ordering:EMELYN Frias MD
[2023-09-17 21:23] LABS: Lactate 2.5 mmol/L (0.6-1.4)
[2023-09-17] MEDS: Cyclobenzaprine 10 MG TAB, 3 TABS/BTL PO (21:46)
== END 2023-09-17 21:43 | disposition home or self-care (01) ==
PROVIDERS: Emergency Provider Physician Assistant; PCP Nurse Practitioner Family
DX: R07.9 Chest pain, unspecified (principal); M94.0 Chondrocostal junction syndrome [Tietze]
CPT/HCPCS: 71275; 80053; 83690; 84145; 93005; 96361; 96374; 96375; 99285; 83605; 83880; 84484; 85025; 93010; 99283; J1885; J3010; J3490

== ENCOUNTER 2024-06-07 02:27 | Outpatient (CLI) | payer OTHER, SELFPAY ==
--- NOTE | 2024-06-07 | DI.MAMMO_ITS ---
Exam(s) MAMMO SCREENING EXAM: MAMMO SCREENING CLINICAL HISTORY: Z12.31 Screening. TECHNIQUE: Bilateral full field digital CC and MLO mammographic images were obtained with 3D tomosyn thesis and utilizing computer aided detection (CAD). COMPARISON: None. This is a baseline mammogram on a 39-year-old FINDINGS: Fibroglandular tissue pattern is moderately dense, this somewhat decreasing the sensitivity of the ma mmogram for finding hidden underlying lesions. No obvious focal findings in left breast. In the upper-outer quadrant of the right breast there is an area of asymmetric density which is proba harrison asymmetric fibroglandular tissue and overlapping shadows but exhibits CAD designations both CC an d MLO views. Recommend further imaging. There are no malignant-appearing microcalcification groups is region or elsewhere in either breast. There is no significant architectural distortion nor skin thickening-retraction. IMPRESSION: Moderate dense fibroglandular tissue. No radiographic evidence of malignancy in left breast. Asymmetric density-possible nodule located in the upper-outer quadrant of the right breast. Spot com pression view and ultrasound recommended BI-RADS Category 0 - Incomplete: Need additional imaging evaluation Breast Density - Category C - Heterogeneously dense Breast density Category C or D implies that the patient has dense breast tissue. Dense breast tissue can make it harder to find cancer on a mammogram. Dense breast tissue is also associated with an incr eased risk of breast cancer. This information about the result of the mammogram report was provided to the patient to raise their awareness. Use this report when you speak with the patient about their risks for breast cancer, which includes their family history. At that time, you may recommend additional screening tests (Ultrasoun d or MRI) as these tests may add significant information. A negative radiographic report should not delay biopsy if a dominant or clinically suspicious mass is present. Up to ten percent of cancers are not identified on mammography. A negative report may reinforce clinical impression. Adenosis and dense breasts may obscure an underlying neoplasm. False positive reports average 6 to 10%. Patient will receive a letter notifying them of these results.
== END 2024-06-07 02:47 ==
PROVIDERS: PCP Nurse Practitioner Family; Visit Provider Nurse Practitioner Family
DX: Z12.31 Encounter for screening mammogram for malignant neoplasm of breast (principal); R92.333 Mammographic heterogeneous density, bilateral breasts
CPT/HCPCS: 77063; 77067

== ENCOUNTER 2024-06-19 01:34 | Outpatient (CLI) | payer OTHER, SELFPAY ==
--- NOTE | 2024-06-19 | DI.US_ITS ---
Exam(s) MG MAMMO DIAGNOSTIC UNI US BREAST RT LIMITED EXAM: MG MAMMO DIAGNOSTIC UNI CLINICAL HISTORY: ASYMMETRIC DENSITY POSSIBLE NODULE RT BREAST R92.8 ABNL MAMMO. TECHNIQUE: Craniocaudal spot compression digital Mammography views of the rightbreast with Tomosynt hesis and right breast ultrasound. COMPARISON: [facility] MAMMO SCREENING from 06/07/2024 FINDINGS: Mammography/Tomosynthesis: Masses: None seen. Architectural Distortion: None seen. Microcalcifictions: No suspicious pleomorphic-type are seen. Skin Thickening/Nipple Retraction: None. Right breast US: Echotexture: Normal appearance of the glandular tissue. Shadowing: No suspicious foci. Cyst: None. Solid lesions: None seen. Ductal dilation: None. IMPRESSION: 1. No evidence of malignancy is noted. 2. Unless there is more urgent need, follow-up screening mammography is recommended, as per [employer] guidelines. 3. The findings were discussed with the patient on the date of the examination. BI-RADS Category 1 - Negative Breast Density - Category C - Heterogeneously dense A mammogram that demonstrates density of C or D indicates the patient's breast tissue is dense. Dense breast tissue is very common and is not abnormal, but dense breast tissue can make it harder to find cancer on a mammogram. Also, dense breast tissue may increase their breast cancer risk. This informa tion about the result of the mammogram report was provided to the patient to raise their awareness. U se this report when you speak with the patient about their risks for breast cancer, which includes th eir family history. At that time, you may recommend for more screening tests (Ultrasound or MRI) as t hey might be useful based on their risk. A negative radiographic report should not delay biopsy if a dominant or clinically suspicious mass is present. Up to ten percent of cancers are not identified on mammography. A negative report may reinforce clinical impression. Adenosis and dense breasts may obscure an underlying neoplasm. False positive reports average 6 to 10%. Patient will receive a letter notifying them of these results.
== END 2024-06-19 01:54 ==
LOC: DI 01:34
PROVIDERS: PCP Nurse Practitioner Family; Visit Provider Nurse Practitioner Family
DX: Z12.31 Encounter for screening mammogram for malignant neoplasm of breast (principal); R92.8 Other abnormal and inconclusive findings on diagnostic imaging of breast
CPT/HCPCS: 76642; 77061; 77065; G0279

== ENCOUNTER 2024-11-05 02:16 | Outpatient (CLI) | payer OTHER, SELFPAY ==
--- NOTE | 2024-11-05 07:30 | DI.RAD_ITS ---
Exam(s) XR FOOT LT COMPLETE XR ANKLE LT COMPLETE EXAM: XR FOOT LT COMPLETE and XR ankle LT complete CLINICAL HISTORY: foot injury, lateral,S99.048Z. TECHNIQUE: 2D digital imaging was performed of the left ankle and foot. Six images were obtained. AP, oblique and lateral views were obtained. COMPARISON: There are no priors for comparison. FINDINGS: BONES: No acute fracture is present. No bony destructive lesion is seen. JOINTS: No dislocation present. The joint spaces are well maintained. The ankle mortise has a normal appearance. SOFT TISSUE: Normal. IMPRESSION: No acute fracture or dislocation of the foot or ankle. DATA REPOSITORY: RADIATION DOSE DELIVERED:
--- NOTE | 2024-11-05 07:30 | DI.RAD_ITS ---
Exam(s) XR FOOT LT COMPLETE XR ANKLE LT COMPLETE EXAM: XR FOOT LT COMPLETE and XR ankle LT complete CLINICAL HISTORY: foot injury, lateral,S99.137P. TECHNIQUE: 2D digital imaging was performed of the left ankle and foot. Six images were obtained. AP, oblique and lateral views were obtained. COMPARISON: There are no priors for comparison. FINDINGS: BONES: No acute fracture is present. No bony destructive lesion is seen. JOINTS: No dislocation present. The joint spaces are well maintained. The ankle mortise has a normal appearance. SOFT TISSUE: Normal. IMPRESSION: No acute fracture or dislocation of the foot or ankle. DATA REPOSITORY: RADIATION DOSE DELIVERED:
== END 2024-11-05 02:36 ==
LOC: DI 02:16
PROVIDERS: PCP Nurse Practitioner Family; Visit Provider Physician Assistant
DX: S99.912A Unspecified injury of left ankle, initial encounter (principal); S99.922A Unspecified injury of left foot, initial encounter; X58.XXXA Exposure to other specified factors, initial encounter
CPT/HCPCS: 73610; 73630

== ENCOUNTER 2025-01-01 08:24 | Outpatient (CLI) | payer OTHER, SELFPAY ==
[2025-01-01 13:04] LABS: Hemoglobin A1C 5.3 % (<5.7)
[2025-01-01 13:43] LABS: ALT 28 U/L (14-59); AST 26 U/L (15-37); Albumin 3.8 g/dL (3.4-5.0); Alkaline Phosphatase 110 U/L (46-116); Anion Gap 6.7 mmol/L (3-11); BUN 6 mg/dL (7-18); Bilirubin, Total 0.4 mg/dL (0.2-1.0); CO2 29.3 mmol/L (21.0-32.0); Calcium 9.2 mg/dL (8.5-10.1); Chloride 100 mmol/L (98-107); Estimated GFR 94.87 (mL/min/1.73m2); Glucose 102 mg/dL (74-106); Potassium 4.0 mmol/L (3.5-5.1); Sodium 136 mmol/L (136-145); TSH (W/Ref FT4) 0.97 uIU/mL (0.36-3.74); Total Protein 7.6 g/dL (6.4-8.2)
== END 2025-01-01 08:25 | disposition home or self-care (01) ==
LOC: LBO 01-02 08:24
PROVIDERS: PCP Nurse Practitioner Family; Visit Provider Obstetrics & Gynecology
DX: N95.1 Menopausal and female climacteric states (principal)
CPT/HCPCS: 36415; 80053; 83036; 84443